=== PATIENT | female | born 1995 | race Caucasian/White ===

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

== ENCOUNTER 2018-03-08 19:26 | Emergency (ER) | payer MEDICAID ==
[~2018-03-08] VITALS: Ht 167.6 cm; Wt 81.8 kg
[2018-03-08 19:33] VITALS: Ht 167.6 cm; Wt 81.8 kg
[2018-03-08] MEDS ORDERED: ZOLOFT25 MG (19:35)
[2018-03-08 20:00] LABS: BASOPHILS 0.3 % (0-2); EOSINOPHILS 1.2 % (0-7); HEMATOCRIT 43.2 % (36.0-48.0); HEMOGLOBIN 14.8 g/dL (12-16); IMMATURE GRANULOCYTES 0.2 % (0-5); LYMPHOCYTES 22.6 % (15-50); MCH 31.9 pg (26.0-34.0); MCHC 34.3 g/dL (31.0-37.0); MCV 93.1 fL (80.0-100.0); MEAN PLATELET VOLUME 9.7 fL (7.4-10.4); MONOCYTES 7.5 % (2-11); NEUTROPHILS 68.2 % (40-80); PLATELET COUNT 242 10x3/uL (130-400); RBC 4.64 10x6/uL (4.00-5.40); RDW 12.1 % (11.5-14.5); WBC 6.4 10x3/uL (4.8-10.8)
[2018-03-08 20:03] LABS: APPEARANCE HAZY (CLEAR); BILIRUBIN NEGATIVE (NEGATIVE); COLOR YELLOW (YELLOW); GLUCOSE NEGATIVE (NEGATIVE); KETONE LARGE mg/dL (NEGATIVE); NITRITE NEGATIVE (NEGATIVE); PROTEIN TRACE mg/dL (NEGATIVE); UROBILINOGEN NORMAL (NORMAL)
[2018-03-08 20:16] LABS: BACTERIA MODERATE /hpf (NONE SEEN); EPITHELIAL CELLS 0-5 /hpf (0-5); RED CELLS - URINE 0-5 /hpf (0-5)
[2018-03-08 20:19] LABS: UDS - AMPHET NEGATIVE QUAL (NEGATIVE); UDS - BARB NEGATIVE QUAL (NEGATIVE); UDS - BENZO NEGATIVE QUAL (NEGATIVE); UDS - COCAINE NEGATIVE QUAL (NEGATIVE); UDS - OPIATE NEGATIVE QUAL (NEGATIVE); UDS - PCP NEGATIVE QUAL (NEGATIVE); UDS - THC POSITIVE QUAL (NEGATIVE)
[2018-03-08 20:24] LABS: CALC OSMOLALITY 268 mosm/kg (275-300); CALCIUM 8.6 mg/dL (8.5-10.1); CARBON DIOXIDE 20.2 mmol/L (21.0-32.0); CHLORIDE - SERUM 98 mmol/L (98-107); CREATININE - SERUM 0.9 mg/dL (0.6-1.3); POTASSIUM - SERUM 3.8 mmol/L (3.5-5.1); SODIUM 135 mmol/L (136-145); THYROID STIMULATING HORMONE 0.96 uIU/mL (0.36-3.74); UREA NITROGEN 14 mg/dL (7-18); eGFR NON AFRICAN AMERICAN 85 mL/min (90-120)
[2018-03-08 20:31] LABS: GLUCOSE 59 mg/dL (74-106)
[2018-03-08 21:36] LABS: HCG SERUM NEGATIVE (NEGATIVE)
[2018-03-09 13:36] VITALS: BP 120/74
== END 2018-03-09 14:35 ==
LOC: D.ER 19:26
PROVIDERS: Family Medicine
DX: F32.9 Major depressive disorder, single episode, unspecified (principal); T14.91XA Suicide attempt, initial encounter; T43.012A Poisoning by tricyclic antidepressants, intentional self-harm, initial encounter; Y92.019 Unspecified place in single-family (private) house as the place of occurrence of the external cause; N39.0 Urinary tract infection, site not specified

== ENCOUNTER 2020-01-22 04:14 | Inpatient (IN) | payer MEDICAID ==
[2020-01-22] VITALS (64 sets, daily range): BP systolic 70–137; BP diastolic 30–115; BMI 32.2
[~2020-01-22] VITALS: Ht 167.6 cm; Wt 95.6 kg
--- NOTE | ~2020-01-22 | HEMODYNAMI ---
PATIENT:SANA FINNEY MEDICAL RECORD: [id number] : [birth year] LOCATION:[facility] D.2307 ADMISSION DATE: 01/22/20 Generatedon:01/22/20207:20 Patient name: SANA FINNEY Patient #: [id number] SSN: DO B: 1995 Date of study: 01/22/2020 Page: Of Hemodynamic Procedure Report Patient Data Patient Demographics Procedure consent was obtained First Name: SANA Gender: Female Last Name: NATA : 1995 Patient #: [id number] Age: 24 year(s) Race: Additional ID: [id number] Contact details [address]: [address] [place] [address] State: [place] City: [place] Zip code: [address] Past Medical History Allergies: No known allergies Admission Admission Data Admission Date: 01/22/2020 Admission Time: 6:33 Arrival Date: 01/22/2020 Arrival Time: 0:00 Admit Source: Other [facility] #: [id number] Room #: D.2307 Height (in.): 66 BSA: 2 (m2) Height (cm.): 167.64 BMI: 32.35 (kg/m2) Weight (lbs.): 200.4 Weight (kg.): 90.9 Lab Results Lab Result Date: 01/22/2020 Lab Result Time: 0:00 Biochemistry Name Units Result Min Max BUN mg/dl 12 --(-*--)-- 7 18 CK-MB ng/ml 0.9 --(*---)-- 0 3.6 Creatinine mg/dl 1 --(--*-)-- 0.6 1.3 eGFR ml/min 73.34269 *-(----)-- 90 120 NONAFRICAN Troponin l ng/ml 0.017 --(-*--)-- 0 0.06 CBC Name Units Result Min Max Hematocrit % 42.8 --(*---)-- 42 54 Hemoglobin g/dl 13.8 --(*---)-- 13.5 17.5 Procedure Procedure Types Cath Procedure Diagnostic Procedure Temporary Pacemaker Procedure Description Procedure Date Procedure Date: 01/22/2020 Procedure Start Time: 6:59 Procedure End Time: 7:18 Procedure Staff Name Function Mariposa Ortega MD Performing Physician Shima Herron RT Monitor Chinmay Madrigal RT Scrub Barber Alvarez RN Nurse Procedure Data Cath Procedure Fluoroscopy Diagnostic fluoroscopy Total fluoroscopy Time: 1.1 time: 1.1 min min Diagnostic fluoroscopy Total fluoroscopy dose: 91 dose: 91 mGy mGy Contrast Material Contrast Material Type Amount (ml) Isovue 370 0 Entry Location Entry Primary Successful Side Size Upsize Upsize Entry Closure Succes sful Closure Location (Fr) 1 (Fr) 2 (Fr) Remarks Device Remarks Femoral Right 6 Fr Sheath vein Short sutured in place Estimated blood loss: 0 ml Procedure Complications No complications Procedure Medications Medication Administration Route Dosage Oxygen Epinephrine I.V. drip 2 mcg/min 0.9% NaCl I.V. 200 ml/hr Lidocaine 2% added to field 20 Heparin Flush Bag added to field 1 bags (1000units/500ml NS) Hemodynamics Rest BSA: 2 (m2) HGB: 13.8 (g/dl) O2 Consumption: Estimated: 234.81 (ml/min) O2 Consu mption indexed: Estimated:117.4 (ml/min/m) Heart Rate: 85 (bpm) Snapshots Pre Cath Intra NCS Post Cath Vital Signs Time Heart Resp SPO2 etCO2 NIBP (mmHg) Rhythm Pain Sedation Rate (ipm) (%) (mmHg) Status Level (bpm) 6:47:25 86 27 100 0 127/87(102) NSR 0 (11) 3(A) , No pain 6:51:39 85 21 100 0 109/74(87) NSR 0 (11) 3(A) , No pain 6:55:40 92 18 100 0 126/89(111) NSR 0 (11) 3(A) , No pain 6:59:54 87 17 100 0 131/91(109) NSR 0 (11) 3(A) , No pain 7:04:08 92 20 100 0 142/99(128) NSR 0 (11) 3(A) , No pain 7:09:07 91 17 100 0 Measuring NSR 0 (11) 3(A) , No pain 7:09:11 91 17 100 0 135/93(114) NSR 0 (11) 3(A) , No pain 7:13:23 83 8 100 0 116/83(95) NSR 0 (11) 3(A) , No pain 7:17:37 91 20 100 0 132/89(111) NSR 0 (11) 3(A) , No pain Medications Time Medication Route Dose Verified Delivered Reason Notes E ffectiveness by by 6:46:39 Epinephrine I.V. 2 mcg/min Mariposa Blandon Per cont drip Jordan Alvarez RN physician drip from er 6:46:39 Oxygen pt is intubated from er 6:48:45 0.9% NaCl I.V. 200 ml/hr Mariposa Blandon Per Jordan Alvarez RN physician 6:55:49 Lidocaine 2% added 20ml vial Mariposa Buffie for local to Jordan Alvarez RN anesthetic field 6:55:58 Heparin Flush added 1 bags Norjoe Buffie used for Bag to Jordan Alvarez RN procedure (1000units/500ml field NS) Procedure Log Time Note 6:20:37 Pt transported from er intubated with ogt to low inter. suction. Pt friends are in waiting area. 6:20:58 Barber Alvarez RN sent for patient. Start room use. 6:44:56 Informed consent obtained and on chart 6:45:12 Diagnostic Cath Status : Urgent 6:45:32 Arrival Date: 01/22/2020 12:00:00 AM 6:45:33 Admit Source: Other 6:45:36 Patient Height : 66 inches 6:45:42 Patient Weight : 200.4 lbs 6:46:22 Vital chart was started 6:46:31 Lab Result : Hemoglobin 13.8 g/dl 6:46:31 Lab Result : eGFR NONAFRICAN 73.75510 ml/min 6:46:31 Lab Result : Creatinine 1 mg/dl 6:46:31 Lab Result : BUN 12 mg/dl 6:46:31 Lab Result : CK-MB 0.9 ng/ml 6:46:31 Lab Result : Troponin l 0.017 ng/ml 6:46:31 Lab Result : Hematocrit 42.8 % 6:46:39 Epinephrine 2 mcg/min I.V. drip was administered by Buffie Alvarez RN; Per physician; cont drip from er Verbal order read back and verified. 6:46:39 Oxygen pt is intubated from er was administered by ; ; Verbal order read back and verified. 6:46:54 Procedure Status Urgent Heart Cath (IP). 6:47:11 Time tracking: Regular hours (M-F 7:00 - 5:00) 6:47:15 Plan of Care:Hemodynamics will remain stable., Cardiac rhythm will remain stable., Comfort level will be maintained., Respiratory function will remain adequate., Patient/ family verbilizes understanding of procedure., Procedure tolerated without complication., Recovers from procedure without complications.. 6:48:45 0.9% NaCl 200 ml/hr I.V. was administered by Barber Alvarez RN; Per physician; Verbal order read back and verified. 6:49:13 Patient received from ED to CCL 2 On ventilator. Tansferred to table in Supine position. 6:49:15 Warm blankets applied, and adrián hugger turned on for patient comfort. 6:49:15 Correct patient and procedure confirmed by team. 6:49:16 ECG and BP/O2 sat monitors applied to patient. 6:49:18 Baseline sample Acquired. 6:49:21 Rhythm: sinus rhythm 6:49:22 Full Disclosure recording started 6:49:35 Family unavailable. 6:49:48 Patient NPO since Dinner. 6:50:05 Patient allergic to No known allergies 6:50:10 Is the patient allergic to Iodine/contrast media? No. 6:50:25 Is patient on blood thinner?Unknown 6:50:27 Patient diabetic? Unknown. 6:51:10 Previous problem with sedation/anesthesia? Unknown ? 6:51:12 Snore? Unknown 6:51:13 Sleep apnea? Unknown 6:51:14 Deviated septum? Unknown 6:51:15 Opens mouth fully? Unknown 6:51:17 Sticks out tongue? Unknown 6:51:19 Airway obstruction? Unknown ? 6:51:21 Dentures? Unknown ? 6:52:13 IV patent on arrival in right hand with 0.9% NaCl at [facility]. 6:52:17 Right groin area was prepped with chlora-prep and draped in sterile fashion 6:52:18 Alarms reviewed by R. N. 6:52:20 Sharps counted by scrub and verified by R.N. 6:52:33 Physician arrived 6:52:33 --------ALL STOP TIME OUT------ 6:52:34 Final Timeout: patient, procedure, and site verified with staff and physician. All members of the team are in agreement. 6:52:36 Right groin site verified by team. 6:52:39 Fire Safety Assessment: A--An alcohol-based skin anteseptic being used preoperatively., C--Open oxygen or nitrous oxide is being used., D--An ESU, laser, or fiber-optic light is being used. 6:52:42 Physical assessment completed. ASA score P 5 - A moribund patient who is not expected to survive without the operation as per Mariposa Ortega MD. 6:52:50 Sedation plan: None Medication:Lidocaine 6:54:25 Use device set Temporary Pacemaker 6:54:27 SHEATH 6FR Oakridge ([id number]) opened to sterile field. 6:54:28 2-0 Silk 685H opened to sterile field. 6:54:28 5Fr J Tip Temporary Pacing Catheter ([id number]) opened to sterile field. 6:55:49 Lidocaine 2% 20ml vial added to field was administered by Barber Alvarez RN; for local anesthetic; Verbal order read back and verified. 6:55:58 Heparin Flush Bag (1000units/500ml NS) 1 bags added to field was administered by Barber Alvarez RN; used for procedure; Verbal order read back and verified. 6:58:56 Procedure started. 6:59:01 Local anesthetic to right femoral vein with Lidocaine 2% by Mariposa Ortega MD.INITIAL ACCESS ONLY 6:59:06 Access obtained with 4Fr micropunture. 6:59:15 A 6 Fr Short sheath was inserted into the Right Femoral vein 7:00:34 H&P Date Dictated: 01/22/2020 New H&P dictated by physician.. 7:02:58 Use device set Acist 7:02:59 ACIST Manifold (21310) opened to sterile field. 7:03:00 ACIST Hand Control (47462) opened to sterile field. 7:03:00 ACIST Syringe (27507) opened to sterile field. 7:03:09 Use device set CATH PACK 7:03:14 Bag Decanter () opened to sterile field. 7:03:15 Medline Cath Pack ([id number]) opened to sterile field. 7:03:26 Temporary pacer inserted 7:07:11 Temporary pacer turned on with the following settings: Rate 50, MA 3, Mode: Demand. 7:07:34 Sheath removed intact; hemostasis achieved with Sheath sutured in place to the Right Femoral vein. 7:07:[address]UTURED IN PLACE. 7:10:03 Procedure ended.(Physican Out) 7:10:54 Fluoroscopy time 01.10 minutes. 7:10:57 Flurop Dose total: 91 7:10:57 Fluoroscopy dose: 91 mGy 7:11:03 Dose Area Product 8049 mGy/cm. 7:11:06 Contrast amount:Isovue 370 0ml. 7:11:10 Sharps counted by scrub and verified by R.N. 7:11:11 Insertion/operative site no bleeding no hematoma. 7:11:16 Post-op/insertion site Right Femoral vein dressed using a 4 x 4 and Tegaderm. 7:11:29 Post right femoral vein:stable, soft, clean and dry 7:11:39 Post-procedure physical assessment completed. ASA score P 4 - A patient with severe systemic disease that is a constant threat to life as per Mariposa Ortega MD. 7:11:43 Post procedure rhythm: unchanged. 7:11:46 Estimated blood loss: 0 ml 7:11:49 Patient needs reinforcement of post procedure teaching. 7:12:03 Procedure type changed to Cath procedure, Diagnostic procedure, Temporary Pacemaker 7:12:19 Procedure and supply charges have been captured, reviewed, submitted and are correct. 7:12:21 Procedure Complication : No complications 7:18:33 Vital chart was stopped 7:18:35 Operative report dictated upon procedure completion. 7:18:36 See physician's report for complete and final results. 7:18:40 Report given to ICU. 7:18:42 Patient transfered to ICU with Stretcher. 7:18:44 Procedure ended. 7:18:44 Full Disclosure recording stopped 7:18:50 End room use (Document Last) Device Usage Item Name Manufacture Quantity Catalog Hospital Part Current Minimal L ot# / Number Charge Number Stock Stock Serial# Code SHEATH 6FR Terumo 1 [id number] 196031 [id number] 595429 40 Oakridge ([id number]) 2-0 Silk Ethicon 1 685H 564310 29568 212924 5 685H 5Fr J Tip Finney 1 [id number] 134336 60779 147062 2 Temporary Lifesciences Pacing Catheter ([id number]) ACIST Acist 1 69046 323505 091025 707467 5 Manifold Medical (97192) Systems Inc ACIST Hand Acist 1 84283 538664 760799 445936 5 Control Medical (00475) Systems Inc ACIST Acist 1 09125 940586 982090 887686 20 Syringe Medical (80781) Systems Inc Bag Microtek 1 2001S 675068 53703 007029 5 Decanter Medical Inc. () Medline Medline 1 [id number] 621980 42570 258007 5 Cath Pack ([id number]) Signature Audit Mcconnell Stage Time Signature Unsigned Intra-Procedure 01/22/2020 Barber Alvarez 7:19:44 AM RN; Chinmay Madrigal RT(R); Mariposa Ortega MD Signatures Performing Physician : Signature : Mariposa Ortega MD Date : Time : Monitor : Shima Herron Signature : RT Date : Time : Nurse : Barber Alvarez RN Signature : Date : Time : [facility] [address] [place] [address]
[~2020-01-22 04:14] MED LIST: ZOLOFT25 MG
--- NOTE | 2020-01-22 04:14 | NUR ---
RECIEVED FROM EMS UNRESPONSIVE INTUBATED AND ON VENTILATOR.PUPILS 4 NON REACTIVE. NO VOLUNTARY MOVEMENTS
[2020-01-22 05:05] LABS: BASOPHILS 0.2 % (0-2); EOSINOPHILS 2.1 % (0-7); HEMATOCRIT 42.8 % (36.0-48.0); HEMOGLOBIN 13.8 g/dL (12-16); IMMATURE GRANULOCYTES 1.9 % (0-5); LYMPHOCYTES 58.1 % (15-50); MCH 32.7 pg (26.0-34.0); MCHC 32.2 g/dL (31.0-37.0); MCV 101.4 fL (80.0-100.0); MEAN PLATELET VOLUME 9.4 fL (7.4-10.4); MONOCYTES 3.7 % (2-11); PLATELET COUNT 288 10x3/uL (130-400); RBC 4.22 10x6/uL (4.00-5.40); RDW 12.5 % (11.5-14.5); WBC 12.8 10x3/uL (4.8-10.8)
[2020-01-22 05:15] LABS: CALC OSMOLALITY 283 mosm/kg (275-300); CALCIUM 8.1 mg/dL (8.5-10.1); CARBON DIOXIDE 17.1 mmol/L (21.0-32.0); CHLORIDE - SERUM 108 mmol/L (98-107); SODIUM 141 mmol/L (136-145); UREA NITROGEN 12 mg/dL (7-18); eGFR NON AFRICAN AMERICAN 73 mL/min (90-120)
[2020-01-22 05:17] LABS: GLUCOSE 158 mg/dL (74-106); HCG SERUM NEGATIVE (NEGATIVE)
[2020-01-22 05:31] LABS: ALKALINE PHOSPHATASE 49 U/L (30-120); ALT (SGPT) 29 U/L (10-68); BILIRUBIN - TOTAL 0.25 mg/dL (0.2-1.3); CKMB 0.9 U/L (0.0-3.6); CREATINE KINASE 75 UL (21-215); PROTEIN - SERUM 6.1 g/dL (6.4-8.2); TROPONIN-I < 0.017 ng/mL (0.000-0.060)
[2020-01-22 05:32] LABS: ACETAMINOPHEN 30.1 ug/mL (10.0-30.0); ALBUMIN 3.2 g/dL (3.4-5.0)
[2020-01-22 05:33] LABS: MAGNESIUM - SERUM 1.7 mg/dL (1.8-2.4)
--- NOTE | 2020-01-22 06:00 | NUR ---
SUBCLAVIAN LINE PLACED PER DR LEVINE
[2020-01-22 06:25] LABS: UDS - AMPHET NEGATIVE QUAL (NEGATIVE); UDS - BARB NEGATIVE QUAL (NEGATIVE); UDS - BENZO NEGATIVE QUAL (NEGATIVE); UDS - COCAINE NEGATIVE QUAL (NEGATIVE); UDS - OPIATE NEGATIVE QUAL (NEGATIVE); UDS - PCP NEGATIVE QUAL (NEGATIVE); UDS - THC POSITIVE QUAL (NEGATIVE)
[2020-01-22 06:26] LABS: BILIRUBIN NEGATIVE (NEGATIVE); GLUCOSE NEGATIVE (NEGATIVE); KETONE NEGATIVE (NEGATIVE); NITRITE NEGATIVE (NEGATIVE); SPECIFIC GRAVITY 1.005 (1.005-1.020); UROBILINOGEN NORMAL (NORMAL)
--- NOTE | 2020-01-22 06:40 | NUR ---
TAKEN TO WATCH REPAIRER FOR TEMPORARY PACEMAKER
[2020-01-22] MEDS ORDERED: PROPRANOLOL HCL20 MG PO (10:37)
--- NOTE | 2020-01-22 18:02 | NUR ---
PER CHELSIE SILVA TO START HUONG.
--- NOTE | 2020-01-22 19:00 | NUR ---
0815-RECIEVED FROM TEACHER DANCING-PORT VENT-PLACED TO VENTILATOR AND SETTINGS AT 100% /550/5 A/C--R GROIN TEMP PACER IN PLACE VVI50/2.5-R IJ INFUSING N/S AT 97-CHNWBCEWYUP-DYU AT 2MG-HEART RATE TO MONITOR 88-SR 0830-DR JAIN AT BEDSIDE WITH POISON CONTROL PROTOCOL FOR BETABLOCKER INGESTION-PHARMACY NOTIFIED OF ORDERS AND NEED FOR STAT 0845-D10W STARTED AT 30ML/H-INSULIN GTT STARTED AT 5UNITS PER-NOTED PROTOCOL HAND WRITTEN FROM ER BOLUS 1UNIT/TZ=044CMWE BOLUS-CALLED PHARMACY FOR CONFIRMATION OF THIS ORDER- 09-RETURN CALL FROM MARY IN PHARMACY STATED GOAL IS 1UNIT/KG/HOUR AND TITRATE WITH D10W TO ACHIVE-SEE HAND WRITTEN GLUCOSE CHART-DEXTROSE IN G - 1030-DR LORENZO AND CRISTOBAL AT BEDSIDE-NOTED ACETYMINOPHEN WTPFU-81-IGFVXEO WITH PHARMACY IF ER ADDRESSED WITH CHARCOAL AND MUCOMYST-NONE REMOVED -OGT TUBE HAS BLOOD IN TUBING ONLY AND CLAMPED-ODOUR OF SULFUR NOT PRESENT ON PT-ORDER SENT TO PHARMACY FOR [id number] CALLED UNIT-STATING DOSAGE AMOUNT WRONG AND TO CORRECT -NOTIFIED DR JAIN-RECHECKED AND NOTED CORRECT ORDER DOSAGE SUBMITTED-NOTIFIED PHARMACY AND STRESSED OVERDOSE TYLENOL -TO SEND AFTER VERIFICATION WITH POISON CONTROL-QUESTIONED LENGTH OF TIME AND AMOUNT OF DEXTROSE AND INSULIN REQUIRED AND TO RUN CONCURRENTLY NOT D50W AMP PUSHES -DR JAIN NOTIFIED BY PHARMACIST FOR CLARIFICATION 1330-NOTED NOT ABLE TO MEET PROTOCOL-INSULIN GTT AT 20UNITS FSBS 77-DEXTROSE AT 100ML/H-RECOMMENDATION TO TREAT DEXTROSE G/H-100G/H MAX-NOTIFIED PHARMACY NOTED D10W 1000ML =100G-INCREASED DEXTROSE 30G AND CONTINUED WITH TITRATION 1500-COMPLLETE AM CARE DONE-R GROIN PACER WIRE SECURED-PT AWAKENED AND COMBATIVE-SECURED WRIST RETRAINTS TO PREVENT EXTUBATION-VERSED 2MG IVP GIVEN 1530-CONTINUES COMBATIVE-STRONG RISK TO DISLODGE PACER WIRE-VERSED 2MG IVP- 1615-MOTHER AT BEDSIDE-STIMUALTED PT TO WAKING STATE-SEVERE COMBATIVE-VERSED 2MG IVP GIVEN-DR JAIN NOTIFIED.NOTED HR DECREASED TO 40 WITH WIDENED QRRS-PACED BEATS X 1-2 MIN-RETURNED TO SR 1630-CONTINUES SEVERE RRISK FOR DISLODGEMENT OF PACER WIRE-VERSED 2MG IVP 1700-DR LORENZO AT BEDSIDE-FOUND PACER WIRE DISCONNECTED WIRE TANGLED AROUND FOOT-SR ON MONITOR-RESECURED WIRE-VERSED 2MG IVP GIVEN-DR JAIN RETURNED CALL STATUS REPORT GIVEN-DIPRIVAN GTT STARTED AND TITRATED TO 20/KG /MIN FOR TASNEEM OF 2 1730-MOTHER RETURNED -DR JAIN AT BEDSIDE-TASNEEM 1-SR ON MONITOR 1900-NOTED PACED 100% ON MONITOR-STRONG PULSE-10MIN INTERMITTENTLY-SEE STRIP GIVEN
--- NOTE | 2020-01-22 19:30 | NUR ---
REPORT RECEIVED. INITIAL ASSESSMENT COMPLETE SEE FLOWSHEETS IV DRIPS PER IV FLOWSHEET. KNEE IMMOBOILZER APPLIED TO RIGHT LEG TO KEEP LEG STRAIGHT TO PROTECT RIGHT GROIN TEMP PACER.
[2020-01-22 19:56] LABS: CALC OSMOLALITY 274 mosm/kg (275-300); CALCIUM 7.7 mg/dL (8.5-10.1); CHLORIDE - SERUM 105 mmol/L (98-107); GLUCOSE 142 mg/dL (74-106); MAGNESIUM - SERUM 1.4 mg/dL (1.8-2.4); SODIUM 137 mmol/L (136-145); UREA NITROGEN 10 mg/dL (7-18)
[2020-01-22 20:07] LABS: CARBON DIOXIDE 27.3 mmol/L (21.0-32.0); CREATININE - SERUM 0.7 mg/dL (0.6-1.3); eGFR NON AFRICAN AMERICAN > 90 mL/min (90-120)
[2020-01-22 20:08] LABS: POTASSIUM - SERUM 2.8 mmol/L (3.5-5.1)
--- NOTE | 2020-01-22 21:00 | NUR ---
EPI GTT OFF
--- NOTE | 2020-01-22 22:45 | NUR ---
PTS SISTER AT DOOR UPDATE GIVEN
--- NOTE | 2020-01-22 23:07 | NUR ---
ATIVAN GIVEN FOR AGITATION SEE EMAR
[2020-01-23] VITALS (57 sets, daily range): BP systolic 93–127; BP diastolic 58–597
--- NOTE | 2020-01-23 00:50 | NUR ---
RECEIVED CALL FROM POISON CONTROL, UPDATED REGARDING PT STATUS, NOTHING FURTHER AT THIS TIME.
--- NOTE | 2020-01-23 03:00 | NUR ---
REASSESSMENT COMPLETE SEE FLOWSHEET
--- NOTE | 2020-01-23 05:15 | NUR ---
PTS MOTHER AT BEDSIDE UPDATE GIVEN
[2020-01-23 06:27] LABS: BASOPHILS 0.1 % (0-2); EOSINOPHILS 0.1 % (0-7); HEMATOCRIT 36.6 % (36.0-48.0); HEMOGLOBIN 12.4 g/dL (12-16); IMMATURE GRANULOCYTES 0.3 % (0-5); LYMPHOCYTES 14.8 % (15-50); MCH 32.5 pg (26.0-34.0); MCHC 33.9 g/dL (31.0-37.0); MEAN PLATELET VOLUME 9.9 fL (7.4-10.4); MONOCYTES 8.8 % (2-11); NEUTROPHILS 75.9 % (40-80); RBC 3.81 10x6/uL (4.00-5.40); RDW 12.2 % (11.5-14.5); WBC 15.8 10x3/uL (4.8-10.8)
[2020-01-23 06:31] LABS: MCV 96.1 fL (80.0-100.0); PLATELET COUNT 175 10x3/uL (130-400)
[2020-01-23 06:40] LABS: INR 1.33 (0.85-1.17); PROTIME 16.3 SECONDS (11.6-15.0)
[2020-01-23 06:51] LABS: ACETAMINOPHEN 2.5 ug/mL (10.0-30.0); ALBUMIN 2.4 g/dL (3.4-5.0); ALKALINE PHOSPHATASE 42 U/L (30-120); BILIRUBIN - TOTAL 0.59 mg/dL (0.2-1.3); CALCIUM 7.4 mg/dL (8.5-10.1); CARBON DIOXIDE 22.8 mmol/L (21.0-32.0); CHLORIDE - SERUM 107 mmol/L (98-107); CREATININE - SERUM 0.7 mg/dL (0.6-1.3); GLUCOSE 119 mg/dL (74-106); MAGNESIUM - SERUM 1.2 mg/dL (1.8-2.4); PROTEIN - SERUM 5.2 g/dL (6.4-8.2); SODIUM 140 mmol/L (136-145); eGFR NON AFRICAN AMERICAN > 90 mL/min (90-120)
[2020-01-23 06:52] LABS: ALT (SGPT) 39 U/L (10-68); CALC OSMOLALITY 275 mosm/kg (275-300); UREA NITROGEN 2 mg/dL (7-18)
[2020-01-23 06:53] LABS: POTASSIUM - SERUM 2.4 mmol/L (3.5-5.1)
[2020-01-23 13:08] LABS: CALC OSMOLALITY 272 mosm/kg (275-300); CALCIUM 7.3 mg/dL (8.5-10.1); CARBON DIOXIDE 25.5 mmol/L (21.0-32.0); CHLORIDE - SERUM 107 mmol/L (98-107); CREATININE - SERUM 0.7 mg/dL (0.6-1.3); GLUCOSE 72 mg/dL (74-106); SODIUM 139 mmol/L (136-145); UREA NITROGEN 1 mg/dL (7-18); eGFR NON AFRICAN AMERICAN > 90 mL/min (90-120)
[2020-01-23 13:11] LABS: POTASSIUM - SERUM 2.6 mmol/L (3.5-5.1)
[2020-01-23 18:36] LABS: CALCIUM 7.1 mg/dL (8.5-10.1); CARBON DIOXIDE 23.3 mmol/L (21.0-32.0); CHLORIDE - SERUM 108 mmol/L (98-107); CREATININE - SERUM 0.8 mg/dL (0.6-1.3); MAGNESIUM - SERUM 1.7 mg/dL (1.8-2.4); SODIUM 138 mmol/L (136-145); UREA NITROGEN 1 mg/dL (7-18); eGFR NON AFRICAN AMERICAN > 90 mL/min (90-120)
[2020-01-23 18:37] LABS: CALC OSMOLALITY 274 mosm/kg (275-300); GLUCOSE 159 mg/dL (74-106)
[2020-01-23 18:39] LABS: POTASSIUM - SERUM 2.7 mmol/L (3.5-5.1)
--- NOTE | 2020-01-23 20:02 | NUR ---
0700-RECIEVED PER FLOW SHEET-PHARMACY NOTIFIED FOR CONTINUED NEED OF LARGE SUPPLY OF INSULIN AND DEXTROSE-100UNITS/H INSULIN-DEXTROSE AT 600G/H- 0830-POISON CONTROL CALLED UNIT FOR EUIHRX-FNOLI-QGA AND KCL RIDERS ORDERED 914-DR HESTER AT BEDSIDE-GIVEN MOTHERS TELEPHONE-WITH REQUEST TO CALL- 1030-DR JAIN AT BEDSIDE DECREASED DEXTROSE TO 400G/H-INSULIN DECREASED TO 70UNIS /H 1230-FAMILY AT BEDSIDE-STATED SPOKE WITH DR HESTER 1400-SEE INSULIN FLOW SHEET 1730-COMPLETE AM CARE DONE-
--- NOTE | 2020-01-23 21:06 | NUR ---
PT MOTHER AT BEDSIDE, STATES THAT SHE FOUND A NOTE THAT THE PT HAD LEFT FOR HER, REQUESTED THAT SHE BRING A COPY IF POSSIBLE. UPDATE PROVIDED, ALL QUESTIONS ANSWERED.
[2020-01-24] VITALS (24 sets, daily range): BP systolic 101–126; BP diastolic 52–89
--- NOTE | 2020-01-24 00:23 | NUR ---
PT AGITATED, THRASHING IN BED, DOES NOT RESPOND TO VERBAL COMMANDS. PRN VERSED 2MG ADMINISTERED VIA SIVP PER MD ORDER.
--- NOTE | 2020-01-24 01:26 | NUR ---
K+ 2.8 ON LAB DRAW, FIRST OF THREE 20 MEQ KCL RIDERS INITIATED PER ELECTROLYTE PROTOCOL.
--- NOTE | 2020-01-24 04:12 | NUR ---
POISON CONTROL UPDATED PER REQUEST REGARDING PT STATUS, NO FURTHER RECOMMENDATIONS AT THIS TIME.
[2020-01-24 06:18] LABS: BASOPHILS 0.2 % (0-2); HEMATOCRIT 37.9 % (36.0-48.0); HEMOGLOBIN 12.6 g/dL (12-16); IMMATURE GRANULOCYTES 0.3 % (0-5); LYMPHOCYTES 19.6 % (15-50); MCH 32.1 pg (26.0-34.0); MCHC 33.2 g/dL (31.0-37.0); MCV 96.7 fL (80.0-100.0); MEAN PLATELET VOLUME 9.9 fL (7.4-10.4); MONOCYTES 10.9 % (2-11); PLATELET COUNT 170 10x3/uL (130-400); RBC 3.92 10x6/uL (4.00-5.40); RDW 12.5 % (11.5-14.5); WBC 12.7 10x3/uL (4.8-10.8)
[2020-01-24 06:26] LABS: ALBUMIN 2.2 g/dL (3.4-5.0); ALKALINE PHOSPHATASE 38 U/L (30-120); ALT (SGPT) 35 U/L (10-68); BILIRUBIN - TOTAL 0.57 mg/dL (0.2-1.3); CALC OSMOLALITY 272 mosm/kg (275-300); CALCIUM 7.2 mg/dL (8.5-10.1); CARBON DIOXIDE 24.7 mmol/L (21.0-32.0); CHLORIDE - SERUM 108 mmol/L (98-107); CREATININE - SERUM 0.7 mg/dL (0.6-1.3); GLUCOSE 122 mg/dL (74-106); SODIUM 138 mmol/L (136-145); UREA NITROGEN 1 mg/dL (7-18); eGFR NON AFRICAN AMERICAN > 90 mL/min (90-120)
[2020-01-24 06:27] LABS: MAGNESIUM - SERUM 2.2 mg/dL (1.8-2.4); POTASSIUM - SERUM 3.4 mmol/L (3.5-5.1)
--- NOTE | 2020-01-24 07:00 | NUR ---
REC'D R[PORT AND RESUMED CARE, ETT TO VENTILATION AND SECURED, VSS, VENT SETTINGS PER FLOWSHEET, PROPOFAL INFUSING AT 60 MCG, OGT TO LIWS WITH BLACK DRAINAGE TO CANISTER, IRRIGATED WITH 60 CC H2O, LEFT SC WITH CDI DRESSING, RIGHT FA PIV IN PLACE, HATFIELD TO GRAIVTY WITH CLEAR YELLOW DRAINAGE TO BAG, SCD,S AND SOFT WRIST RESTRAINTS B/L, ASSESSMENT COMPLETED PER FLOWSHEET, INCONTINENT OF LARGE DIARRHEA STOOL TO MONIQUE PAD, SKIN CARE AND LINEN CHANGE COMPLETED
--- NOTE | 2020-01-24 08:06 | NUR ---
VENT ALARMING, COUGHING AND MOVING LEGS TO OUT SIDE OF BED, VERSED 2M IVP GIVN PER PRN ORDER
--- NOTE | 2020-01-24 12:57 | NUR ---
Nutrition Follow-up: Remains intubated and sedated at time. Diet: NPO, OG to LIS Meds noted: diprivan, NS/KCl@50, insulin drip, levophed Labs noted: K 3.4(L), POC Glu 121(H) If unable to extubate and advance diet within next 24hrs recommend EN. TF goal would be Pulmocare @ 45mL/hr. RD following.
--- NOTE | 2020-01-24 14:20 | NUR ---
LATE ENTRY: PC FROM DR LOYD, STATED HE WAS ABLE TO CALL MOTHER AND GIVE STATUS UPDATE, MOTHER HAS NO OTHER NEEDS AT THIS TIME
--- NOTE | 2020-01-24 20:30 | NUR ---
REC'D PT ON VENT, SETTINGS OF AC, RATE OF 22, PEEP 5, FiO2 30%, PEEP 5, O2 SAT 100%. SEDATED BY PROPOFOL AT 75MCG/KG/HR, TASNEEM OF 5. ETT AT MIDLINE. LUNGS WITH CRACKLES/RALES ALLY. OGT TO LIWS WITH DK GREEN SECRETIONS. RIGHT SUBCLAVIAN PATENT WITH D20 @ 150 ML/HR TO ONE PORT, NS W/40 MEQ @ 50 ML/HR TO 2ND PORT. R WRIST PIV PATENT WITH DIPRIVAN @ 75 MCG/KG/HR (45 ML/HR). HATFIELD IN SITU WITH MEI URINE DRAINING TO GRAVITY BAG. SCDs IN PLACE FUNCTIONING. SR PER MONITOR. WILL CONT TO MONITOR.
--- NOTE | 2020-01-24 23:00 | NUR ---
FSBS REMAIN IN 80S, INSULIN DRIP REMAINS OFF. REPOSITIONED FOR PULMONARY HYGIENE AND SKIN INTEGRITY. SISTER HAD BEEN IN VISITATION AT 2100 AND BROUGHT SUICIDE NOTE WITH HER TO MAKE A COPY. TOLD HER WOULD BE HAPPY TO, PLACED ON FRONT OF CHART FOR PHYSICIAN. GIVEN CHG BATH AND REPOSITIONED. MONITORING
[2020-01-25] VITALS (24 sets, daily range): BP systolic 94–128; BP diastolic 42–80
--- NOTE | 2020-01-25 01:30 | NUR ---
CONT UNCHANGED, O2 SAT 100%, REPOSITIONED
--- NOTE | 2020-01-25 04:00 | NUR ---
HAD GIVEN VERSED 2 MG IV @ 2034 AND LORAZEPAM 2 MG IV @ 2304 FOR BUCKING VENT. HAS RESTED MORE SINCE THEN. O2 SATS CONT 100%. CONT TO MONITOR
[2020-01-25 05:40] LABS: BASOPHILS 0.2 % (0-2); EOSINOPHILS 3.3 % (0-7); HEMATOCRIT 36.3 % (36.0-48.0); HEMOGLOBIN 11.8 g/dL (12-16); IMMATURE GRANULOCYTES 0.2 % (0-5); LYMPHOCYTES 25.5 % (15-50); MCH 31.7 pg (26.0-34.0); MCHC 32.5 g/dL (31.0-37.0); MCV 97.6 fL (80.0-100.0); MEAN PLATELET VOLUME 10.7 fL (7.4-10.4); NEUTROPHILS 61.8 % (40-80); PLATELET COUNT 175 10x3/uL (130-400); RBC 3.72 10x6/uL (4.00-5.40); RDW 12.6 % (11.5-14.5)
[2020-01-25 05:42] LABS: WBC 8.8 10x3/uL (4.8-10.8)
[2020-01-25 05:50] LABS: ALBUMIN 2.1 g/dL (3.4-5.0); ALKALINE PHOSPHATASE 52 U/L (30-120); ALT (SGPT) 30 U/L (10-68); BILIRUBIN - TOTAL 0.77 mg/dL (0.2-1.3); CALC OSMOLALITY 277 mosm/kg (275-300); CARBON DIOXIDE 26.9 mmol/L (21.0-32.0); CHLORIDE - SERUM 109 mmol/L (98-107); CREATININE - SERUM 0.6 mg/dL (0.6-1.3); GLUCOSE 94 mg/dL (74-106); POTASSIUM - SERUM 3.6 mmol/L (3.5-5.1); PROTEIN - SERUM 5.2 g/dL (6.4-8.2); SODIUM 141 mmol/L (136-145); eGFR NON AFRICAN AMERICAN > 90 mL/min (90-120)
[2020-01-25 05:51] LABS: UREA NITROGEN 3 mg/dL (7-18)
--- NOTE | 2020-01-25 06:15 | NUR ---
FSBS JUST WENT OVER 100 @ 104, STILL NOT REQUIRING INSULIN DRIP. VSS. I&Os DONE. WILL CONT WITH CURRENT PLAN OF CARE
--- NOTE | 2020-01-25 08:20 | NUR ---
REPORT RECEVIED FROM THE OFF GOING RN. SEE ASSESSMENT IN THE PTS FLOW SHEET. PT SEDATED ON THE VENT. PT VSS. NSR NOTED. SEE IV MEDS IN FLOWSHEET AND MAR. CALL LIGHT IN REACH. WILL CONT POC.
--- NOTE | 2020-01-25 09:00 | NUR ---
PT REPOSITINON FOR COMFORT. VSS. CALL LIGHT IN [facility]. WILLC ONT POC.
--- NOTE | 2020-01-25 10:30 | NUR ---
FULL BEDBATH GIVEN. PT INC OF BOWEL. LINENS CHANGED. CALL LIGHT IN REACH. WILLC ONT POC.
--- NOTE | 2020-01-25 11:00 | NUR ---
REASSESSMENT COMPLETED. SEE FLOW SHEET/MAR
--- NOTE | 2020-01-25 12:43 | NUR ---
1115 ASSISTED WITH BED BATH BEDSIDE REPORT RECEIVED TURNED LOW INTERMITTANT SUCTION BACK ON
--- NOTE | 2020-01-25 12:44 | NUR ---
1208 BLOOD SUGAR 116 NO ACTION INDICATED
--- NOTE | 2020-01-25 14:24 | NUR ---
1409 BLOOD SUGAR 97 NO CHANGES INDICATED
--- NOTE | 2020-01-25 15:24 | NUR ---
1450 DECREASED PROPOFOL TO 35MCG/KG/MIN FOR WEANING TRIAL
--- NOTE | 2020-01-25 16:24 | NUR ---
1520 DECREASED PROPOFOL TO 25 MCG/KG/MIN
--- NOTE | 2020-01-25 16:26 | NUR ---
[address] LOYD AND WAS INSTRUCTED TO STOP THE WEANING TRIAL AND RETURN TO ASSIST CONTROL INCREASED PROPOFOL GTT TO 75 MCG/KG/MIN VERSED GIVEN SEE MAR
--- NOTE | 2020-01-25 17:33 | NUR ---
1730 SEDATED AND RESTING QUIETLY WITH EYES CLOSEDPROPOFOL MAXED OUT AT 75 MCG
--- NOTE | 2020-01-25 19:00 | NUR ---
REPORT RECEIVED. PT SEDATED ON VENT. SOFT WRIST RESTRAINTS IN PLACE. RT SUBCLAVIAN CVL INFUSING, SEE IV FLOWSHEET. ASSESSMENT COMPELTED, SEE FLOWSHEET. WILL CONTINUE TO MONITOR.
--- NOTE | 2020-01-25 20:04 | MORECARE ---
CASE MANAGEMENT DISCHARGE SUMMARY PATIENT: SANA PEACE UNIT: [id number] ADM DATE: 01/22/20 AGE: 24 : [birth year] SEX: F ROOM/BED: D.2307 AUTHOR: ANJALI WILD PHYSICIAN: REFERRING PHYSICIAN: BRENT HESTER DO DATE OF SERVICE: 01/25/20 Discharge Plan Patient Name: SA[facility] PEACE [facility] [facility] 1995 Planned Disposition: Anticipated Discharge Date: Discharge Date: Expected LOS: Initial Reviewer: [email or web address] Initial Review Date: 01/22/2020 Generated: 01/25/20 9:04 pm DCPIA - Discharge Planning Initial Assessment Updated by [email or web address]: Gina Anderson on 01/25/20 8:02 pm * Is the patient Alert and Oriented? Yes * How many steps to enter\exit or inside your home? * PCP unknown - Chal Guru - therapist * Pharmacy [facility] * Preadmission Environment Home with Family * ADLs Independent * List name and contact numbers for known caregivers / representatives who currently or will assist patient after discharge: Tatiana Reynoso [facility] [phone] * Verbal permission to speak to the caregivers and representatives has been obtained from the patient. N/A * Community resources currently utilized None * Additional services required to return to the preadmission environment? No * Can the patient safely return to the preadmission environment? Yes * Has this patient been hospitalized within the prior 30 days at any hospital? No Patient Name: SANA PEACE Page [id number] at 2004 All edits/amendments must be made on the electronic document DICTATION DATE: 01/25/202003 RESTAURANT RECRUITER: KODY 01/25/202003 RPT#: [id number] DC DATE: STATUS: ADM IN [facility] [address] [place] [address] END OF REPORT
--- NOTE | 2020-01-25 20:11 | MORECARE ---
CASE MANAGEMENT DISCHARGE SUMMARY PATIENT: SANA PEACE UNIT: [id number] ADM DATE: 01/22/20 AGE: 24 : [birth year] SEX: F ROOM/BED: D.2307 AUTHOR: TORRI,DOC PHYSICIAN: REFERRING PHYSICIAN: BRENT HESTER DO DATE OF SERVICE: 01/25/20 Discharge Plan Patient Name: SANA PEACE Facility: [facility]:[place] : 1995 Planned Disposition: Anticipated Discharge Date: Discharge Date: Expected LOS: Initial Reviewer: [email or web address] Initial Review Date: 01/22/2020 Generated: 01/25/20 9:10 pm Comments DCP- Discharge Planning Updated by [email or web address]: Gina Anderson on 01/25/20 7:[address] Patient Name: SANA PEACE Admission Status: ER Accout number: [id number] Admission Date: 01-22-2020 : 1995 Admission Diagnosis:POISONING BY OTH DRUG/MEDS/BIOL SUBST, SELF-HARM, INIT Attending: BRENT HESTER Current LOS: 3 Anticipated DC Date: Planned Disposition: [place] PR[place] Discharge Planning Comments: CM met with patient's sister Tatiana Reynoso to complete initial dc planning assessment. CM educated patient on the CM role and verbal consent given by patient to complete assessment. Patient lives at home with room-mate. Patient is independent. At discharge patient will most likely need inpatient psych placement since this admission was related to a suicide attempt. CM will continue to follow and will assist as needed with dc plans/needs. Information Assurance Manager: Gina Anderson DCPIA - Discharge Planning Initial Assessment Updated by [email or web address]: Gina Anderson on 01/25/20 8:02 pm * Is the patient Alert and Oriented? Yes * How many steps to enter\exit or inside your home? * PCP unknown - Patience Garvey - therapist * Pharmacy [facility] * Preadmission Environment Home with Family * ADLs Independent * List name and contact numbers for known caregivers / representatives who currently or will assist patient after discharge: Tatiana Reynoso - sister - [phone] * Verbal permission to speak to the caregivers and representatives has been obtained from the patient. N/A * Community resources currently utilized None * Additional services required to return to the preadmission environment? No * Can the patient safely return to the preadmission environment? Yes * Has this patient been hospitalized within the prior 30 days at any hospital? No Last DP export: 01/25/20 7:04 p Patient Name: SANA PEACE Page [id number] at 2010 All edits/amendments must be made on the electronic document DICTATION DATE: 01/25/202009 OCEAN IMPORT REPRESENTATIVE: KODY 01/25/202009 RPT#: [id number] DC DATE: STATUS: ADM IN [facility] [address] [place] [address] END OF REPORT
--- NOTE | 2020-01-25 21:00 | NUR ---
PT SEDATED ON VENT. NO ACUTE DISTRESS NOTED.
[2020-01-26] VITALS (24 sets, daily range): BP systolic 97–127; BP diastolic 43–71
[2020-01-26 06:05] LABS: BASOPHILS 0.3 % (0-2); EOSINOPHILS 5.7 % (0-7); HEMATOCRIT 32.4 % (36.0-48.0); HEMOGLOBIN 10.5 g/dL (12-16); IMMATURE GRANULOCYTES 0.3 % (0-5); LYMPHOCYTES 19.1 % (15-50); MCH 31.9 pg (26.0-34.0); MCHC 32.4 g/dL (31.0-37.0); MCV 98.5 fL (80.0-100.0); MEAN PLATELET VOLUME 9.8 fL (7.4-10.4); MONOCYTES 9.9 % (2-11); NEUTROPHILS 64.7 % (40-80); PLATELET COUNT 168 10x3/uL (130-400); RBC 3.29 10x6/uL (4.00-5.40); RDW 12.3 % (11.5-14.5); WBC 7.2 10x3/uL (4.8-10.8)
[2020-01-26 06:10] LABS: ALBUMIN 1.9 g/dL (3.4-5.0); ALKALINE PHOSPHATASE 52 U/L (30-120); ALT (SGPT) 23 U/L (10-68); BILIRUBIN - TOTAL 0.56 mg/dL (0.2-1.3); CALCIUM 7.5 mg/dL (8.5-10.1); CARBON DIOXIDE 27.2 mmol/L (21.0-32.0); CHLORIDE - SERUM 105 mmol/L (98-107); CREATININE - SERUM 0.5 mg/dL (0.6-1.3); GLUCOSE 122 mg/dL (74-106); POTASSIUM - SERUM 3.2 mmol/L (3.5-5.1); SODIUM 139 mmol/L (136-145); eGFR NON AFRICAN AMERICAN > 90 mL/min (90-120)
[2020-01-26 06:12] LABS: CALC OSMOLALITY 275 mosm/kg (275-300); UREA NITROGEN 4 mg/dL (7-18)
--- NOTE | 2020-01-26 07:00 | NUR ---
REPORT RECEVIED FROM THE OFF GOING RN. SEE ASSESSMENT IN THE PTS FLOW SHEET. PT SEDATED ON THE VENT. NSR ON THE MONITORS. VSS. CALL LIGHT IN REACH. WILL CONT POC.
--- NOTE | 2020-01-26 07:19 | NUR ---
2300 - REASSESSMENT COMPLETED, SEE FLOWSHEET. 0100 - PT SEDATED ON VENT, NO ACUTE DISTRESS NOTED. 0300 - REASSESSMENT COMPLETED, SEE FLOWSHEET. 0500 - PT SEDATED ON VENT, NO ACUTE DISTRESS NOTED. WILL CONTINUE TO MONITOR.
--- NOTE | 2020-01-26 08:16 | NUR ---
DR LOYD IN THE UNIT. TURN SEDATION OFF. TRY TO WEEN.
--- NOTE | 2020-01-26 08:34 | NUR ---
PT OFF SEDATION AND AWAKE. PT COUGHING OVER THE VENT AND TACHYPNIC. PT AWAKE. PT NOT FOLLOWING DIRECTIONS. PT STARTED TO KICK AND ATTEMPTED TO KICK STAFF MULTIPLE TIMES. PER DR LOYD, PLACE PATIENT BACK ON SEDATION AND ON FULL VENT SUPPORT.
--- NOTE | 2020-01-26 11:00 | NUR ---
PT REMAINS SEDATED AND CALM AT THIS TIME. VSS. CALL LIGHT IN REACH. WILLC ONT POC.
--- NOTE | 2020-01-26 13:00 | NUR ---
PT HAD A BM. CHD BATH GIVEN AND FULL LINEN CHANGED. PT TOLERATED WELL. WILLC ONT POC.
--- NOTE | 2020-01-26 13:51 | NUR ---
Nutrition Follow-up: Remains sedated and intubated. On BB toxicity protocol per poison control. Plans to begin vent weaning trial today. Diet: NPO Recommend MONOGRAM MACHINE OPERATOR swallow eval s/p extubation for safe PO diet/advanced diet to regular as medically feasible. If unable to extubate recommend nutrition support. RD following.
--- NOTE | 2020-01-26 15:00 | NUR ---
REASSESSMENT COMPLTED. SEE FLOW SHEET. CALL LIGHT IN REACH. WILL CONT POC.
--- NOTE | 2020-01-26 19:00 | NUR ---
ASSESSMENT COMPLETED. SEE FLOWSHEETS FOR ALL FINDINGS. PT SEDATED ON VENT, AROUSES WITH VOICES, GET RESTLESS WITH TACTILE STIMULATION. NO FALLOWS COMMANDS AT THIS TIME. VSS. CONT SEDATION PER ORDER TO KEEP PT CALM ON VENT. CONT TO MONITOR.
--- NOTE | 2020-01-26 20:45 | NUR ---
FAMILY AT BEDSIDE. UPDATED.
--- NOTE | 2020-01-26 21:00 | NUR ---
SCHEDULED MEDS GIVEN WITHOUT DIFFIC. PT ALINA WELL. CPOC.
--- NOTE | 2020-01-26 21:00 | NUR ---
NO VISITORS AT THIS TIME. PT CONT RESTLESS AND AGITATED IN BED. SEDATION CONT PER ORDER. MOUTH CARE PER VAP PROVIDED. VSS. CPOC.
--- NOTE | 2020-01-26 23:00 | NUR ---
REASSESSMENT COMPLETED. NO ACUTE CHANGED NOTED IN PT'S STATUS. CONT SEDATION TO KEEP PT CALM ON MONITOR. VSS. CPOC.
[2020-01-27] VITALS (24 sets, daily range): BP systolic 97–128; BP diastolic 45–80
--- NOTE | 2020-01-27 01:00 | NUR ---
PT ON VENT RESTLESS IN BED, HANKING THE VENT CONSTANTLY, SUCTION AND MOUTH CARE DONE FOR COPIOUS SECREATIION. CONT SEDATION TO KEEP CALM. CPOC.
--- NOTE | 2020-01-27 03:00 | NUR ---
REASSESSMENT COMPLETED PER FLOWSHEETS. NO ACUTE SINGS OF ACUTE CHANGES NOTED. VSS. CPOC.
--- NOTE | 2020-01-27 04:00 | NUR ---
I&O COMPLETED TO CHART.
[2020-01-27 05:23] LABS: BASOPHILS 0.3 % (0-2); EOSINOPHILS 4.8 % (0-7); HEMATOCRIT 35.7 % (36.0-48.0); HEMOGLOBIN 11.6 g/dL (12-16); IMMATURE GRANULOCYTES 0.2 % (0-5); LYMPHOCYTES 16.5 % (15-50); MCH 32.6 pg (26.0-34.0); MCHC 32.5 g/dL (31.0-37.0); MCV 100.3 fL (80.0-100.0); MEAN PLATELET VOLUME 10.2 fL (7.4-10.4); MONOCYTES 12.2 % (2-11); PLATELET COUNT 195 10x3/uL (130-400); RBC 3.56 10x6/uL (4.00-5.40); RDW 12.4 % (11.5-14.5)
[2020-01-27 05:34] LABS: ALBUMIN 2.3 g/dL (3.4-5.0); ALKALINE PHOSPHATASE 61 U/L (30-120); ALT (SGPT) 23 U/L (10-68); BILIRUBIN - TOTAL 0.41 mg/dL (0.2-1.3); CALC OSMOLALITY 274 mosm/kg (275-300); CARBON DIOXIDE 27.5 mmol/L (21.0-32.0); CHLORIDE - SERUM 106 mmol/L (98-107); CREATININE - SERUM 0.6 mg/dL (0.6-1.3); GLUCOSE 85 mg/dL (74-106); SODIUM 140 mmol/L (136-145); UREA NITROGEN 3 mg/dL (7-18); eGFR NON AFRICAN AMERICAN > 90 mL/min (90-120)
[2020-01-27 05:40] LABS: WBC 9.1 10x3/uL (4.8-10.8)
[2020-01-27 05:42] LABS: POTASSIUM - SERUM 4.3 mmol/L (3.5-5.1)
--- NOTE | 2020-01-27 19:00 | NUR ---
REPORT RECEIVED. PT SEDATED ON VENT, NO ACUTE DISTRESS NOTED. SOFT WRIST RESTRAINTS IN PLACE. ASSESSMENT COMPLETED, SEE FLOWSHEET. RT SUBCLAVIAN CVL INFUSING, SEE IV FLOWSHEET. WILL CONTINUE TO MONITOR.
--- NOTE | 2020-01-27 21:00 | NUR ---
PT SEDATED ON VENT, NO ACUTE DISTRESS NOTED.
--- NOTE | 2020-01-27 23:00 | NUR ---
REASSESSMENT COMPLETED, SEE FLOWSHEET. PT SEDATED ON VENT.
[2020-01-28] VITALS (25 sets, daily range): BP systolic 99–130; BP diastolic 44–72
--- NOTE | 2020-01-28 01:00 | NUR ---
PT SEDATED ON VENT. COPIOUS THICK, YELLOW SECRETIONS FROM NOSE AND MOUTH. SUCTIONED NEEDED.
--- NOTE | 2020-01-28 03:00 | NUR ---
REASSESSMENT COMPLETED, SEE FLOWSHEET.
--- NOTE | 2020-01-28 05:00 | NUR ---
PT SEDATED ON VENT, NO ACUTE DISTRESS NOTED.
--- NOTE | 2020-01-28 07:00 | NUR ---
RECEIVED BEDSIDE REPORT ON PATIENT AND ASSUMED CARE. PATIENT SEDATED ON VENT, SPO2 - 95%, VENT SETTINGS ARE AC 18, TV 500, PEEP 5, FIO2 30%. BBS - CLEAR AND EQUAL DIMINISHED IN BASES. ETT 8.0, 23 CM. CM - ST WITH NO ECTOPY NOTED RATE 108. CVL TO RIGHT SUBCLAVIAN WITH NS WITH 40 MEQ KCL INFUSING AT 50 ML/HR, D20W INFUSING AT 150 ML/HR, PROPOFOL AT 75 MCG/KG/MIN (45 ML/HR) AND FENTANYL AT 50 MCG/HR (1 ML/HR). IV 20 GA TO LEFT WRIST NSL. RESTRAINTS IN PLACE AND SCDS ON. OG TUBE WITH OSMOLITE AT 20 ML/HR, PLACEMENT VERIFIED VIA ASCULTATION, RESIDUAL 150 ML. PATIENT TURNED AND REPOSITIONED IN BED. VSS. HEAD TO TOE ASSESSMENT COMPLETED.
[2020-01-28 07:45] LABS: CALC OSMOLALITY 272 mosm/kg (275-300); CALCIUM 7.8 mg/dL (8.5-10.1); CARBON DIOXIDE 29.1 mmol/L (21.0-32.0); CHLORIDE - SERUM 105 mmol/L (98-107); CREATININE - SERUM 0.6 mg/dL (0.6-1.3); GLUCOSE 106 mg/dL (74-106); POTASSIUM - SERUM 3.7 mmol/L (3.5-5.1); SODIUM 138 mmol/L (136-145); UREA NITROGEN 3 mg/dL (7-18); eGFR NON AFRICAN AMERICAN > 90 mL/min (90-120)
[2020-01-28 07:50] LABS: BASOPHILS 0.2 % (0-2); EOSINOPHILS 6.3 % (0-7); HEMATOCRIT 35.3 % (36.0-48.0); HEMOGLOBIN 11.3 g/dL (12-16); IMMATURE GRANULOCYTES 0.3 % (0-5); LYMPHOCYTES 15.1 % (15-50); MCH 32.5 pg (26.0-34.0); MCV 101.4 fL (80.0-100.0); MEAN PLATELET VOLUME 9.7 fL (7.4-10.4); MONOCYTES 12.4 % (2-11); NEUTROPHILS 65.7 % (40-80); PLATELET COUNT 209 10x3/uL (130-400); RBC 3.48 10x6/uL (4.00-5.40); RDW 12.6 % (11.5-14.5); WBC 9.2 10x3/uL (4.8-10.8)
--- NOTE | 2020-01-28 08:11 | NUR ---
PATIENT DESAT TO 84% WITH GOOD WAVEFORM, INCREASED FIO2 TO 40% AND RT NOTIFIED.
--- NOTE | 2020-01-28 08:45 | NUR ---
PATIENT TURNED AND REPOSITIONED IN BED. FIO2 - 30% WITH SPO2 - 98%. RT AT ROOM OBTAINING ABG. MEDS PER SEP.
--- NOTE | 2020-01-28 09:21 | NUR ---
PATIENTS MOTHER AT ROOM UDPATED AND QUESTIONS ANSWERED.
--- NOTE | 2020-01-28 09:27 | NUR ---
DR. LOYD AT ROOM EXAMINES PATIENT AND UPDATES MOTHER.
--- NOTE | 2020-01-28 10:09 | NUR ---
NUTRIION F/U CHART REVIEWED, SPOKE WITH NURSING. PT REMAINS SEDATED ON VENT. OSMOLITE TUBE FEEDS CURRENTLY AT 20 CC/HR WITH GOAL RATE 40 CC/HR. WILL MONITOR DIPRIVAN RATE AND ADJUST TUBE FEEDS APPROPRIATE. RD FOLLOWING
--- NOTE | 2020-01-28 11:04 | NUR ---
REASSESSMENT COMPLETED. VSS. OGT PLACEMENT CHECKED VIA ASCULTATION RESIDUAL 170 ML. TURNED AND REPOSITIONED IN BED.
--- NOTE | 2020-01-28 11:42 | NUR ---
PATIENT PLACED ON CPAP TRIAL. HR - 99, RR - 20, VT - 448, SPO2 -98%, BP 113/55.
--- NOTE | 2020-01-28 11:45 | NUR ---
PS TRIAL 07/01
--- NOTE | 2020-01-28 12:30 | NUR ---
PATIENT TOLERATED 40 MINUTE PS TRIAL BEFORE REQUIRING BEING PLACED BACK ON A RATE. VANC TROUGH WAS 10.7, OK TO HANG NEXT VANC PER PHARMACY.
--- NOTE | 2020-01-28 12:45 | NUR ---
PATIENT TURNED AND REPOSITIONED IN BED. VSS.
--- NOTE | 2020-01-28 13:28 | NUR ---
SPOKE TO PATIENTS MOTHER AT LENGTH REGARDING PLAN OF CARE. PATIENTS MOTHER SPOKE TO A FAMILY FRIEND WHO IS A NEUROLOGIST AT [facility] REGARDING DAUGHTERS CONDITION AND IS REQUESTING A TRANSFER TO [facility]. SHE HAD SPOKE TO NEUROLOGY CHAIR AT [facility] WHO TOLD HER THAT THEY WOULD BE GLAD TO POSSIBLE ACCEPT HER OR TO CONSULT WITH DR. LOYD ON TREATMENT OPTIONS. PROVIDED TELEPHONE NUMBER [phone] FOR CONSULT LINE AT [facility]. DR. HARDEN ADVISED.
--- NOTE | 2020-01-28 13:52 | NUR ---
SPOKE TO DR. HARDEN REGARDING PATIENTS MOTHERS REQUEST TO TRANSFER DAUGHTER TO [facility], ADVISED SHE WILL INITIATE THE PROCESS FOR A POSSIBLE TRANSFER TO [facility]. CASE MANAGEMENT NOTIFIED.
--- NOTE | 2020-01-28 15:08 | NUR ---
REASSESSMENT COMPLETED. VSS. TURNED AND REPOSITIONED IN BED.
--- NOTE | 2020-01-28 16:30 | NUR ---
PATIENT GIVEN CHG BATH AND LINENS CHANGED. VSS.
--- NOTE | 2020-01-28 17:20 | NUR ---
PATIENT TURNED AND REPOSITIONED IN BED. VSS.
--- NOTE | 2020-01-28 19:00 | NUR ---
3:1 REPORT RECEIVED. INITIAL ASSESMENT COMPLETE SEE FLOWSHEET. SR ON CM ALARMS ON AND AUDIBLE CPOC
--- NOTE | 2020-01-28 23:00 | NUR ---
REASSESSMENT COMPLETE NO CHANGES. CPOC
[2020-01-29] VITALS (24 sets, daily range): BP systolic 99–142; BP diastolic 47–92
--- NOTE | 2020-01-29 03:00 | NUR ---
REASSESSMENT COMPLETE. OGT HOLD DUE TO HIGH RESIDUAL WILL PASS ON IN REPORT TO ONCOMING SHIFT. CPOC
[2020-01-29 06:33] LABS: BASOPHILS 0.2 % (0-2); EOSINOPHILS 5.5 % (0-7); HEMATOCRIT 34.7 % (36.0-48.0); HEMOGLOBIN 11.1 g/dL (12-16); IMMATURE GRANULOCYTES 0.6 % (0-5); LYMPHOCYTES 14.6 % (15-50); MONOCYTES 12.6 % (2-11); NEUTROPHILS 66.5 % (40-80); PLATELET COUNT 243 10x3/uL (130-400); RBC 3.47 10x6/uL (4.00-5.40); RDW 12.1 % (11.5-14.5)
[2020-01-29 06:38] LABS: CALC OSMOLALITY 267 mosm/kg (275-300); CARBON DIOXIDE 30.3 mmol/L (21.0-32.0); CHLORIDE - SERUM 103 mmol/L (98-107); CREATININE - SERUM 0.6 mg/dL (0.6-1.3); GLUCOSE 119 mg/dL (74-106); POTASSIUM - SERUM 3.8 mmol/L (3.5-5.1); SODIUM 135 mmol/L (136-145); UREA NITROGEN 4 mg/dL (7-18); eGFR NON AFRICAN AMERICAN > 90 mL/min (90-120)
--- NOTE | 2020-01-29 07:30 | NUR ---
opens eyes to stimulation. ett secure to vent bilateral lung sounds equal. og tube clamped. right subclavian central line tiple lumen infusing with diprivan at 75 mcg/kg/min. d20w at 150 ml hour, ns with 40 meq kcl at 50 ml hour. scd on lower legs working properly becerra cath patent draining clear clear mark urine. sedated no distress. monitor sr.
--- NOTE | 2020-01-29 09:00 | NUR ---
dr. stapleton here orders received to start on fentanyl and wean diprivan. patient repositioned. clean linen with turn sheet applied. large amount clear secretion orally. suction white sputum from ett/ hibclens bath given. hair pulled up. family sister here update given
--- NOTE | 2020-01-29 11:00 | NUR ---
repositioned. tube restarted at 10 ml hour. fentanyl increased to 100 mcg/hour. diprivan decreased to 60 mcg/kg/min.
--- NOTE | 2020-01-29 13:00 | NUR ---
dirpivan decreased to 30 mcg/kg/min. patient resting comfortably at this time. no distress. repositioned. heels bridged on pillow. no skin breakdown noted.
--- NOTE | 2020-01-29 15:24 | NUR ---
tolerating cpap on vent well. no distress. resp non larbored deep and regular. tv greater than 400ml resp rate 18-20. head of bed elevated 30 degrees.
--- NOTE | 2020-01-29 17:00 | NUR ---
TOLERATING CPAP WELL NO RESP DISTRESS. NOTED. RESTLESS AT TIMES. MOVING ALL EXTREMITITES. NOT MAKING EYE CONTACT, NOT OBEYING COMMANDS.
--- NOTE | 2020-01-29 19:00 | NUR ---
REPORT RECEIVED. PT OPENS EYES TO VERBAL STIMULI DOES NOT FOLLOW COMMANDS BUT APPEARS TO ATTEMPT TO TURN HEAD TO VOICE. SEDATED WITH FENTANYL AND DIPRIVAN ORALLY INTUBATED. CM READING SR WITHOUT ECTOPY ALARMS ON AND AUDIBLE ABD SOFT NONTENDER. TUBE FEEDING VIA OGT WITH RESIDUAL OF 45 WILL CONTINUE TO MONITOR
--- NOTE | 2020-01-29 20:00 | NUR ---
ACCUCHECK 120 NO COVERAGE
--- NOTE | 2020-01-29 23:00 | NUR ---
REASSESSMENT COMPLETE NO CHANGES CPOC SUCTIONED MODERATE AMOUNT THICK CLEAR SECRETIONS ORALLY AND VIA ETT. ORAL CARE AND REPOSITIONED FOR COMFORT WILL CONTINUE TO MONITOR
[2020-01-30] VITALS (24 sets, daily range): BP systolic 100–141; BP diastolic 48–90
--- NOTE | 2020-01-30 01:13 | NUR ---
ACCUCHECK 104 NO COVERAGE JUST CHECKING Q4H PER ORDERS
--- NOTE | 2020-01-30 01:40 | NUR ---
ORAL CARE MODERATE AMOUNT THICK CLEAR SECRETIONS ORALLY AND VIA ETT. O2 SAT 98%.
--- NOTE | 2020-01-30 03:00 | NUR ---
REASSESSMENT COMPLETE NO CHANGES CPOC
[2020-01-30 06:23] LABS: BASOPHILS 0.2 % (0-2); EOSINOPHILS 6.8 % (0-7); HEMOGLOBIN 10.5 g/dL (12-16); IMMATURE GRANULOCYTES 0.5 % (0-5); LYMPHOCYTES 16.9 % (15-50); MCHC 31.8 g/dL (31.0-37.0); MCV 100.6 fL (80.0-100.0); MONOCYTES 13.4 % (2-11); NEUTROPHILS 62.2 % (40-80); PLATELET COUNT 259 10x3/uL (130-400); RBC 3.28 10x6/uL (4.00-5.40); RDW 11.9 % (11.5-14.5); WBC 8.5 10x3/uL (4.8-10.8)
[2020-01-30 06:47] LABS: CALC OSMOLALITY 269 mosm/kg (275-300); CARBON DIOXIDE 29.9 mmol/L (21.0-32.0); CHLORIDE - SERUM 103 mmol/L (98-107); GLUCOSE 115 mg/dL (74-106); POTASSIUM - SERUM 3.6 mmol/L (3.5-5.1); SODIUM 136 mmol/L (136-145); UREA NITROGEN 3 mg/dL (7-18)
[2020-01-30 06:49] LABS: CREATININE - SERUM 0.4 mg/dL (0.6-1.3); eGFR NON AFRICAN AMERICAN > 90 mL/min (90-120)
--- NOTE | 2020-01-30 08:18 | NUR ---
PT WITHDRAWLS TO STIMULI. SUCTIONING AND MOUTH CARE. DOES NOT FOLLOW COMMAND. REQUIRES FREQ SUCTIONING.
--- NOTE | 2020-01-30 10:39 | NUR ---
DR LOPEZ HERE ON ROUNDS. VSS. TURNED AND POSITIONED FOR COMFORT.
--- NOTE | 2020-01-30 11:34 | NUR ---
SEDATION OFF ORDERED BY DR LOYD. TF OFF AND FLUSHED FOR PATENCY.
--- NOTE | 2020-01-30 14:10 | NUR ---
PT EXTUBATED TO 4LNC. ALL SEDATION TAKEN DOWN AND WASTED.
--- NOTE | 2020-01-30 15:00 | NUR ---
SPOKE TO RESIDENTIAL RE: SITTER FOR PT. RYAN REPORTS THAT SHE DOES NOT HAVE SITTER AVAILABLE AT PRESENT TIME. HOUSE SUPP NOTIFIED.
--- NOTE | 2020-01-30 17:11 | NUR ---
DR. MATA NOTIFIED AND SITTER ORDERED. SITTER AT BEDSIDE. NOTIFIED CHARGE NURSE AND ATTENDING IN REGARDS TO ASSESSMENT UNABLE TO BE OBTAIN AT THIS TIME. PATIENT IS UNABLE MTO ANSWER QUESTIONS. WILL ATTEMPT OASSESSMENT LATER.
--- NOTE | 2020-01-30 19:00 | NUR ---
REPORT RECEIVED. INITIAL ASSESMENT COMPLETE. PT ALERT AND ANSWERS SOME QUESTIONS APPROPRIATELY. KNOWS IT IS 2019 AND JANUARY BUT DOES NOT KNOW WHAT HAPPENED AND WHERE SHE IS. REORIENTED TO UNIT AND WHITE BOARD UPDATED WITH DATE TIME AND INFORMATION. PT APPEARS FLAT AND WITHDRAWN SEEMS CHILDLIKE AT TIMES WHILE CONVERSING. VOICE IS VERY LOW AND RASPY DIFFICULT TO UNDERSTAND AT TIMES. ON ROOM AIR WITH O2 SAT 100%. RESP EVEN AND NONLABORED CHEST CLEAR. CM READING SR-LOW ST WHEN ANXIOUS UP TO 122'S. ABD SOFT NONTENDER. RIGHT TLSC NOTED SEE IV DRIP SHEET AND FLOWSHEETS. HATFIELD PATENT WITH DARK YELLOW URINE. SKIN W/D PPP. SCARS TO ALLY THIGHS FROM PT HISTORY OF CUTTING SELF. BED IN LOW POSITION SIDE RAILS UP TIMES 3 FOR BED MOBILITY AND SAFETY. 1:1 SITTER AT BEDSIDE AT ALL TIMES WILL CONTINUE TO MONITOR
--- NOTE | 2020-01-30 21:30 | NUR ---
RIGHT TLSC DRESSING SOILED CLEANED AND REDRESSED WITH BIOPATCH USING STERILE TECHNIQUE PT TOLERATED WELL
--- NOTE | 2020-01-30 23:00 | NUR ---
REASSESSMENT COMPLETE NO CHANGES PT DENIE PAIN OR DISCOMFORT DOES CONTINUE NOT MAKING SENSE WITH CONVERSATION BUT EASILY REDIRECTED. VSS AT THIS TIME CPOC
[2020-01-31] VITALS (18 sets, daily range): BP systolic 104–133; BP diastolic 48–98; Ht 167.6 cm; Wt 95.6 kg
--- NOTE | 2020-01-31 02:45 | NUR ---
1:1 SITTER WITH PT CALLING FOR NURSE STATES PT UPSET AND NOT MAKING SENSE. IN TO SPEAK WITH PT REORIENTED TO UNIT INFORMED SHE WAS IN HOSPITAL AND IN INTENSIVE CARE UNIT. ATTEMPTS TO REDIRECT SUCCESSFUL. PT CONFUSED BUT DOES CALM DOWN AND ATTEMPT TO RELAX WILL CONTINUE TO MONITOR. SITTER REMAINS AT BEDSIDE 1:1
--- NOTE | 2020-01-31 03:00 | NUR ---
REASSESSMENT COMPLETE SITTER REMAINS AT BEDSIDE 1:1. NO CHANGES WILL CONTINUE TO MONITOR CPOC
--- NOTE | 2020-01-31 05:10 | NUR ---
COMPLETE BED BATH LINEN CHANGE SHAMPOO HAIR WITH SHAMPOO CAP. PT ASSISTED WITH MINIMAL TASKS PT CHILDLIKE DID SMILE AND LAUGH WITH NURSE WILL CONTINUE TO MONITOR
[2020-01-31 07:00] LABS: CALCIUM 8.6 mg/dL (8.5-10.1); CARBON DIOXIDE 28.6 mmol/L (21.0-32.0); CHLORIDE - SERUM 102 mmol/L (98-107); GLUCOSE 131 mg/dL (74-106); SODIUM 137 mmol/L (136-145)
[2020-01-31 07:01] LABS: CALC OSMOLALITY 272 mosm/kg (275-300); CREATININE - SERUM 0.6 mg/dL (0.6-1.3); POTASSIUM - SERUM 3.7 mmol/L (3.5-5.1); UREA NITROGEN 5 mg/dL (7-18); eGFR NON AFRICAN AMERICAN > 90 mL/min (90-120)
[2020-01-31 07:14] LABS: BASOPHILS 0.3 % (0-2); EOSINOPHILS 5.4 % (0-7); IMMATURE GRANULOCYTES 0.7 % (0-5); LYMPHOCYTES 24.7 % (15-50); MCH 32.2 pg (26.0-34.0); MCHC 32.4 g/dL (31.0-37.0); MCV 99.3 fL (80.0-100.0); MEAN PLATELET VOLUME 10.7 fL (7.4-10.4); MONOCYTES 13.7 % (2-11); NEUTROPHILS 55.2 % (40-80); RDW 11.9 % (11.5-14.5); WBC 8.9 10x3/uL (4.8-10.8)
[2020-01-31 07:15] LABS: HEMATOCRIT 39.8 % (36.0-48.0); HEMOGLOBIN 12.9 g/dL (12-16); PLATELET COUNT 320 10x3/uL (130-400); RBC 4.01 10x6/uL (4.00-5.40)
--- NOTE | 2020-01-31 07:25 | NUR ---
PT RESTING COMFORTABLY ASSESSMENT COMPLETE PER FLOW SHEET. VSS. PT DENIES NEEDS WILL CONTINUE TO MONITOR
--- NOTE | 2020-01-31 09:50 | NUR ---
MARY WITH SPEECH AT BEDSIDE GIVENUDPATE. NEW ORDERS RECEIVED
--- NOTE | 2020-01-31 11:00 | NUR ---
REASESSMENT COMPLETE PER FLOW SHEET. VSS. PT RESTING COMFORTABLY WILL CONTINUE TO MONITOR
--- NOTE | 2020-01-31 11:03 | NUR ---
Nutrition follow-up: Pt extubated 01/29; diet has advanced to mechanical soft with honey thick liquids per speech Labs reviewed WT: 210# RDN monitoring pts po intake and progress.
--- NOTE | 2020-01-31 14:31 | NUR ---
OT NOTE: PT REQUIRED MAX A X2 FOR POSITIONING IN BED. PT REQUIRED MAX A WITH SIMPLE HYGIENE TASKS. PT EXHIBITED IMPAIRED DEPTH PERCEPTION AND BUE COORDINATION. [phone] THANK YOU,MIL LANGFORD
--- NOTE | 2020-01-31 16:00 | NUR ---
PT ATTEMPTING TO RIP OUT CVL, HATFIELD, AND MONITORS. ATTEMPT TO DISTRACT WITH NO EFFECT. PT HITTING AND KICKING NURSES. PT PLACED INTO BILAT WRIST RESTRAINTS.
--- NOTE | 2020-01-31 19:00 | NUR ---
REPORT RECEIVED. PT DISORIENTED TO TIME, PLACE, SITUATION. PT MUMBLING TO SELF AT THIS TIME. RT SUBCLAVIAN CVL INFUSING, SEE IV FLOWSHEET. ASSESSMENT COMPLETED, SEE FLOWSHEET.
--- NOTE | 2020-01-31 21:00 | NUR ---
PT RESTING IN BED, NO ACUTE DISTRESS NOTED.
--- NOTE | 2020-01-31 23:00 | NUR ---
REASSESSMENT COMPLETED, SEE FLOWSHEET.
[2020-02-01] VITALS (15 sets, daily range): BP systolic 84–149; BP diastolic 57–95
--- NOTE | 2020-02-01 01:00 | NUR ---
PT RESTING IN BED, NO ACUTE DISTRESS NOTED.
--- NOTE | 2020-02-01 03:00 | NUR ---
REASSESSMENT COMPLETED, SEE FLOWSHEET.
--- NOTE | 2020-02-01 05:00 | NUR ---
PT RESTING QUIETLY IN BED, NO COMPLAINTS AT THIS TIME.
[2020-02-01 06:11] LABS: BASOPHILS 0.3 % (0-2); EOSINOPHILS 2.9 % (0-7); HEMATOCRIT 38.5 % (36.0-48.0); HEMOGLOBIN 12.5 g/dL (12-16); IMMATURE GRANULOCYTES 0.5 % (0-5); LYMPHOCYTES 24.6 % (15-50); MCH 32.1 pg (26.0-34.0); MCHC 32.5 g/dL (31.0-37.0); MCV 98.7 fL (80.0-100.0); MEAN PLATELET VOLUME 9.5 fL (7.4-10.4); MONOCYTES 10.5 % (2-11); NEUTROPHILS 61.2 % (40-80); PLATELET COUNT 352 10x3/uL (130-400); RDW 12.1 % (11.5-14.5); WBC 10.3 10x3/uL (4.8-10.8)
[2020-02-01 06:20] LABS: ALBUMIN 2.8 g/dL (3.4-5.0); ALKALINE PHOSPHATASE 128 U/L (30-120); ALT (SGPT) 56 U/L (10-68); BILIRUBIN - DIRECT 0.16 mg/dL (0.00-0.30); BILIRUBIN - INDIRECT 0.34 mg/dL (0.00-1.00); CALC OSMOLALITY 272 mosm/kg (275-300); CALCIUM 8.7 mg/dL (8.5-10.1); CARBON DIOXIDE 27.5 mmol/L (21.0-32.0); CHLORIDE - SERUM 101 mmol/L (98-107); CREATININE - SERUM 0.6 mg/dL (0.6-1.3); GLUCOSE 123 mg/dL (74-106); MAGNESIUM - SERUM 2.2 mg/dL (1.8-2.4); PHOSPHOROUS 4.7 mg/dL (2.5-4.9); POTASSIUM - SERUM 4.2 mmol/L (3.5-5.1); PROTEIN - SERUM 7.8 g/dL (6.4-8.2); SODIUM 136 mmol/L (136-145); eGFR NON AFRICAN AMERICAN > 90 mL/min (90-120)
[2020-02-01 06:21] LABS: UREA NITROGEN 13 mg/dL (7-18)
--- NOTE | 2020-02-01 09:14 | NUR ---
PT SLEEPING COMFORTABLY NO NEW CHANGES ATE 3 BITES OF BREAKFAST.
--- NOTE | 2020-02-01 11:58 | NUR ---
OT NOTE: SPOKE WITH NURSING WHO ASKED IF WE COULD ATTEMPT TO GET PT UP AND AMBULATE. PT VERY LETHARGIC AND DIFFICULT TO KEEP AWAKE. MOD/MAX ASSIST TO EOB; MOD ASSIST FOR STATIC SITTING; SIT TO STAND WIHT MAX ASSIST X 2; ABLE TO TAKE 4-5 SIDE STEPS WITH UE SUPPORT. PERFORMED COGNITIVE TASKS.. PT IS ALERT TO PERSON AND PLACE (WITH VERBAL CUES FOR PLACE) ; MEMORY RECALL IS LESS THAN 2 SECONDS; SLURRED SPEECH; PT AGAIN WAS ABLE TO REMEMBER WHERE SHE WORKED BUT DID NOT REMEMBER ANYTHING ABOUT PRIOR LIVING SITUATION OR LEVEL OF FUNCTION. WILL PROGRESS TOLERATED. SUPA SHOOK, OTR/L [phone]
--- NOTE | 2020-02-01 12:58 | NUR ---
PT REFUSED LUNCH
--- NOTE | 2020-02-01 15:19 | NUR ---
REASSESSMENT COMPLETE PER FLOW SHEET. VSS. PT RESTING COMFORTABLY WILL CONTINUE TO MONITOR
--- NOTE | 2020-02-01 17:20 | NUR ---
PT SLEEPING COMFORTABLY. FAMILY CALLED. STATED PASSWORD GIVEN UPDATE.
--- NOTE | 2020-02-01 17:37 | NUR ---
OT NOTE: PT REQUIRED MAX X2 FOR SUPINE TO SIT . PT COMPLETED SIT TO STAND WITH MOD A X2. PT COMPLETED SIDE STEPPING WITH MIN A X2. PT MOST MARKED DEFICITS NOTED TO BE LACK OF COORDINATION, SLURRED SPEECH, DISCORD IN MEMORY RETENTION FOR SHORT TERM/RECALL, FM DEFICITS, AND PROCESSING OF STEPS TO COMPLETE ACTIVITIES. PT WILL REQUIRE ASSISTANCE WITH ALL ADLS/IADLS AT THIS TIME. PT REQUIRED MIN A WITH SIMPLE FACE HYGIENE. [phone] THANK YOU,MIL LANGFORD
--- NOTE | 2020-02-01 19:00 | NUR ---
REPORT RECEIVED. PT RESTING IN BED, NO ACUTE DISTRESS NOTED. ASSESSMENT COMPLETED, SEE FLOWSHEET. RT SUBCLAVIAN CVL INFUSING, SEE IV FLOWSHEET. WILL CONTINUE TO MONITOR.
--- NOTE | 2020-02-01 21:00 | NUR ---
PT RESTING IN BED, NO ACUTE DISTRESS NOTED. WILL CONTINUE TO MONITOR.
[2020-02-02 03:00] VITALS: BP 120/64
--- NOTE | 2020-02-02 05:00 | NUR ---
2300 - PT SITTING UP IN BED, NO ACUTE DISTRESS NOTED. 0100 - PT RESTING IN BED, NO FURTHER COMPLAINTS AT THIS TIME. 0300 - PT ATTEMPTED TO GET OUT OF BED, REORIENTED NEEDED. 0500 - PT RESTING QUIETLY IN BED, NO SIGNS OF ACUTE DISTRESS.
[2020-02-02 07:00] VITALS: BP 110/68
--- NOTE | 2020-02-02 07:08 | NUR ---
REPORT RECEIVED. ASSESSMENT COMPLETE PER FLOW SHEET. VSS. PT RESTING COMFORTABLY WILL CONTINUE TO MONITOR
--- NOTE | 2020-02-02 09:20 | NUR ---
DR CARTER AT BEDSIDE. GIVEN UPDATE. NEW ORDERS RECEIVED.
--- NOTE | 2020-02-02 09:29 | NUR ---
DR. CARTER AT BEDSIDE, NEW ORDERS RECIEVED,
[2020-02-02 11:00] VITALS: BP 114/71
--- NOTE | 2020-02-02 11:05 | NUR ---
REASSESSMENT COMPLETE PER FLOW SHEET. VSS. PT RESTING COMFORTABLY WILL CONTINUE TO MONITOR
--- NOTE | 2020-02-02 11:06 | NUR ---
Nutrition follow-up: Pt receiving a regular mechanical soft diet with honey thick liquids Pt is refusing some meals; has been lethargic per nurse Wt: 211# Will provide food choices and honor food preferences. Will offer nutritional supplements. RDN following.
--- NOTE | 2020-02-02 11:49 | NUR ---
PT EATING ON OWN. DENIES NEEDS ANNABEL CONTINUE TO MONITOR
--- NOTE | 2020-02-02 14:39 | NUR ---
OT NOTE: PT DOING BETTER TODAY. PT WAS SITTING UP ON EOB.. GOOD BALANCE. NURSING REPORTED THAT PT WAS ABLE TO BRING FOOD TO MOUTH WITH FINGER FOODS.. PT STILL UNABLE TO MANIPULATE UTENSILS DUE TO IMPAIRED COORDINATION. WILL PERFORM FURTHER ASSESSMENT TOMORROW, HOWEVER, PT APPEARS TO HAVE SOME VISUAL IMPAIREMENTS INCLUDING DEPTH/FOREGROUND PERCEPTION. PT WAS ABLE TO AMB WITH MIN ASSIST X 2 GREATER THAN 75 FT. VERY FATIGUED UPON RETURN TO ROOM. REMAINS CONFUSED WITH STM DEFECITS. SUPA SHOOK, OTR/L [id number]
[2020-02-02 15:00] VITALS: BP 119/71
--- NOTE | 2020-02-02 18:10 | NUR ---
OT NOTE: PT COMPLETED SIT TO STAND WITH MIN A. PT COMPLETED ALD MOB WITH MIN A. PT COMPLETED BUE AROM AXS. PT IS MUCH IMPROVED TODAY WITH FUNCTIONAL INDEPENDENCE. PT EXHIBITED IMPAIRED FM/GM SKILLS. [id number] THANK YOU,MIL LANGFORD
--- NOTE | 2020-02-02 19:30 | NUR ---
INTRODUCED SELF TO PT. SHE IS SITTING IN THE CHAIR AT THE BEDSIDE COMBING HER HAIR. SHE SPEAKS VERY SOFTLY. EXPLAINED TO HER THAT I WOULD BE BACK TO DO AN ASSESSMENT.
[2020-02-02 20:15] VITALS: BP 100/68
--- NOTE | 2020-02-02 20:30 | NUR ---
PT STILL SITTING AT BEDSIDE. ASSESSMENT COMPLETED. PUPILS ARE 4-5 BUT RESPOND WELL TO LIGHT. PT IS NOW ON A REGULAR DIET SO SHE CAN HAVE CLEAR LIQUIDS. HEART SOUNDS WNL, LUNGS CLEAR AND BS HEARD IN ALL QUADRANTS. ABD IS SOFT AND NONTENDER. SHE VOIDS WELL WITHOUT DIFFICULTY IN THE BSC AT BEDSIDE. SHE TRANSFERS FROM CHAIR TO BE WITH MIN ASSIST. SHE REQUIRES SOME VERBAL CUES TO DO THINGS. NO C/O PAIN AT THIS TIME. SHE STATES SHE HAS NO SUICIDAL THINKING OF FEELING AT THIS TIME. SHE IS STILL COMBING HER HAIR ON AND OFF.
--- NOTE | 2020-02-02 21:15 | NUR ---
PT IS STILL SITTING IN A CHAIR COMBING HER HAIR. SHE HAS NO NEEDS AND NO C/O PAIN NOW. SHE LIKES TO TELL STORIES ABOUT HERSELF.
--- NOTE | 2020-02-02 21:31 | MORECARE ---
CASE MANAGEMENT DISCHARGE SUMMARY PATIENT: SANA PEACE UNIT: [id number] ADM DATE: 01/22/20 AGE: 24 : 97 SEX: F ROOM/BED: D.2305 AUTHOR: TORRI,DOC PHYSICIAN: REFERRING PHYSICIAN: BRENT HESTER DO DATE OF SERVICE: 02/02/20 Discharge Plan Patient Name: SANA PEACE Facility: [facility]:[place] : 1995 Planned Disposition: Anticipated Discharge Date: Discharge Date: Expected LOS: Initial Reviewer: [email or web address] Initial Review Date: 01/22/2020 Generated: 02/02/20 10:30 pm DCP- Discharge Planning Updated by [email or web address]: Gina Anderson on 01/25/20 7:[address] Patient Name: SANA PEACE Admission Status: ER Accout number: [id number] Admission Date: 01-22-2020 : 1995 Admission Diagnosis:POISONING BY OTH DRUG/MEDS/BIOL SUBST, SELF-HARM, INIT Attending: BRENT HESTER Current LOS: 3 Anticipated DC Date: Planned Disposition: Primary [place] [employer] Discharge Planning Comments: CM met with patient's sister Tatiana Reynoso to complete initial dc planning assessment. CM educated patient on the CM role and verbal consent given by patient to complete assessment. Patient lives at home with room-mate. Patient is independent. At discharge patient will most likely need inpatient psych placement since this admission was related to a suicide attempt. CM will continue to follow and will assist as needed with dc plans/needs. Product Management Consultant: Gina Anderson DCPIA - Discharge Planning Initial Assessment Updated by [email or web address]: Gina Anderson on 01/25/20 8:02 pm * Is the patient Alert and Oriented? Yes * How many steps to enter\exit or inside your home? * PCP unknown - Patience Garvey - therapist * Pharmacy [facility] * Preadmission Environment Home with Family * ADLs Independent * List name and contact numbers for known caregivers / representatives who currently or will assist patient after discharge: Tatiana Reynoso - sister - [phone] * Verbal permission to speak to the caregivers and representatives has been obtained from the patient. N/A * Community resources currently utilized None * Additional services required to return to the preadmission environment? No * Can the patient safely return to the preadmission environment? Yes * Has this patient been hospitalized within the prior 30 days at any hospital? No External Providers External Provider: [facility] Next Contact Date: Service Request Date: Service Type: Resolution: Reviewer: Comments: Last DP export: 01/25/20 7:11 p Patient Name: SANA PEACE Page [phone] at 2131 All edits/amendments must be made on the electronic document DICTATION DATE: 02/02/202130 CLINICAL MATERIAL HANDLER: KODY 02/02/202130 RPT#: [id number] DC DATE: STATUS: ADM IN [facility] [address] [place] [address] END OF REPORT
--- NOTE | 2020-02-02 21:40 | NUR ---
IV PEPCID ORDERED. PT HAS A RIGHT SUBCLAVIAN TRIPLE PORT. HER LINE WAS FLUSHED WITH NS AND MED GIVEN DILUTED WITH NS. LINE WAS FLUSHED AGAIN WITH NS. LINE FLUSHED EASILY AND MEDICATION WENT IN EASILY. SITE LOOK GOOD. NO REDNESS OR DRAINAGE NOTED. SHE HAS A GOWN ON FRONT AND BACK WHICH PROTECTS HER FROM MESSING WITH HER IV. AT THIS TIME PT IS IN BED. SHE NEEDED MIN ASSIST TO TRANSFER WITH SOME VERBAL CUES.
--- NOTE | 2020-02-02 22:30 | NUR ---
ESTEPHANIA WHITE RN FROM CASE MANAGEMENT CALLED TO LET ME KNOW THAT SHE HAS TALKED TO MIAN AT THE TRANSFER CENTER WORKING ON PT. TRANSFER. SHE HAS FAX THEM PT NOTES, THERAPY NOTES, ETC...SHE IS WAITING TO HEAR BACK FROM THEM HOPEFULLY TOMORROW. PT IS RESTING QUIETLY IN BED.
--- NOTE | 2020-02-02 22:30 | NUR ---
I LET THE PT KNOW THAT OUR GOLD AND SILVER ASSAYER, ESTEPHANIA WHITE RN, HAS TALKED TO MIAN AT THE TRANSFER CENTER ABOUT TRANSFER. PT GETS EXCITED THINKING SHE IS GOING TO GET TO STAY WITH HER SISTER. SHE TOLD ME THAT SHE HAD FIGURED OUT THE QUESTIONS THE CM ASKED AND SHE KNOWS HOW TO ANSWER THEM AND MANIPUALTE THE SYSTEM.
--- NOTE | 2020-02-02 22:35 | MORECARE ---
CASE MANAGEMENT DISCHARGE SUMMARY PATIENT: SANA PEACE UNIT: [id number] ADM DATE: 01/22/20 AGE: 24 : 97 SEX: F ROOM/BED: D.2305 AUTHOR: TORRI,DOC PHYSICIAN: REFERRING PHYSICIAN: BRENT HESTER DO DATE OF SERVICE: 02/02/20 Discharge Plan Patient Name: SANA PEACE Facility: [facility]:[place] : 1995 Planned Disposition: Anticipated Discharge Date: Discharge Date: Expected LOS: Initial Reviewer: [email or web address] Initial Review Date: 01/22/2020 Generated: 02/02/20 11:34 pm Comments DCP- Discharge Planning Updated by [id number]: Ana Luisa Cortez on 02/02/20 9:[address] Patient Name: SANA PEACE Admission Status: ER Accout number: [id number] Admission Date: 01-22-2020 : 1995 Admission Diagnosis:POISONING BY OTH DRUG/MEDS/BIOL SUBST, SELF-HARM, INIT Attending: BRENT HESTER Current LOS: 11 Anticipated DC Date: 02/02/20 Planned Disposition: Inpatient Psych Facility Primary Insurance: [place] [employer] Discharge Planning Comments: Late entry for 02/02/20 09:30: CM received call from ICU nurse stating MD stated patient is ready for discharge to Inpatient Psych facility. CM called [facility], spoke with Lina about referral. Reviewed medical record with Lina. Will send copy of record as requested. 10:25 CM received call back that facility would not be able to accept patient at this time due to the level of care needed with ADL's and IADL's. CM informed Lina that PT, OT, and ST would see patient again today and CM would let her know if functional level improves. 22:00 CM called transfer center with referral. Spoke with Estephania about referral. Faxed records as requested. CM notified ICU nurse, Germaine, of status of placement. Manager Statistical: Ana Luisa Cortez DCP- Discharge Planning Updated by [email or web address]: Gina Anderson on 01/25/20 7:[address] Patient Name: SANA PEACE Admission Status: ER Accout number: [id number] Admission Date: 01-22-2020 : 1995 Admission Diagnosis:POISONING BY OTH DRUG/MEDS/BIOL SUBST, SELF-HARM, INIT Attending: BRENT HESTER Current LOS: 3 Anticipated DC Date: Planned Disposition: Primary Insurance: [place] [employer] Discharge Planning Comments: CM met with patient's sister Tatiana Reynoso to complete initial dc planning assessment. CM educated patient on the CM role and verbal consent given by patient to complete assessment. Patient lives at home with room-mate. Patient is independent. At discharge patient will most likely need inpatient psych placement since this admission was related to a suicide attempt. CM will continue to follow and will assist as needed with dc plans/needs. Manager Statistical: Gina Anderson DCPIA - Discharge Planning Initial Assessment Updated by [email or web address]: Gina Anderson on 01/25/20 8:02 pm * Is the patient Alert and Oriented? Yes * How many steps to enter\exit or inside your home? * PCP unknown - Patience Garvey - therapist * Pharmacy [facility] * Preadmission Environment Home with Family * ADLs Independent * List name and contact numbers for known caregivers / representatives who currently or will assist patient after discharge: Tatiana Reynoso - sister - [phone] * Verbal permission to speak to the caregivers and representatives has been obtained from the patient. N/A * Community resources currently utilized None * Additional services required to return to the preadmission environment? No * Can the patient safely return to the preadmission environment? Yes * Has this patient been hospitalized within the prior 30 days at any hospital? No Last DP export: 02/02/20 8:31 pm Patient Name: SANA PEACE Page 26612 at 2235 All edits/amendments must be made on the electronic document DICTATION DATE: 02/02/202233 FINANCE LEAD: KODY 02/02/202233 RPT#: [id number] DC DATE: STATUS: ADM IN [facility] [address] [place] [address] END OF REPORT
--- NOTE | 2020-02-02 22:55 | NUR ---
REPORT GIVEN BY ICU NURSE
--- NOTE | 2020-02-02 23:10 | NUR ---
PT IS STILL AWAKE WATCHING TV. NO C/O OR NEEDS
--- NOTE | 2020-02-02 23:10 | NUR ---
PT STILL AWAKE WATCHING TV. NO C/O OR NEEDS
[2020-02-03 00:05] VITALS: BP 110/68
--- NOTE | 2020-02-03 00:05 | NUR ---
VS TAKEN. PT ASKED FOR LIGHTS TO BE TURNED OUT SO SHE CAN SLEEP.
--- NOTE | 2020-02-03 02:05 | NUR ---
PT IS STILL AWAKE. SHE PUT HER LIGHT ON AND ASKED FOR HER NURSE. WHEN I GOT IN HER ROOM SHE SAID, "I'M DOING FINE". I TOLD HER SHE NEEDED TO GO TO SLEEP IN CASE SHE TRANSFERS SOMEWHERE. SHE SAID I WANT TO BE FREE. SITTER HAS BEEN OUTSIDE HER ROOM ALL SHIFT. CALL LIGHT IS WITHIN REACH. NO C/O OR NEEDS.
[2020-02-03 04:05] VITALS: BP 105/64
--- NOTE | 2020-02-03 05:25 | NUR ---
PT IS SITTING IN HER DOORWAY WANTING TO GET OUT OF HER ROOM. SHE STOOD UP ONE TIME AND THE SITTER AND I CAUGHT HER. I PUT THE BRAKES ON THE CHAIR SO SHE COULDN'T MOVE FORWARD ANY MORE. SHE IS STILL TRYING TO GET OUT. I TOLD HER THAT SHE WASN'T ALLOWED TO GET OUT OF HER ROOM. SHE HAS BEEN BRUSHING HER HAIR SINCE SHE GOT UP. THE SITTER KNOWS TO WATCH HER EVERY MINUTE SO SHE DOESN'T FALL AND TO CALL ME IF THERE ARE ANY PROBLES.
--- NOTE | 2020-02-03 06:38 | NUR ---
PT IS STILL SITTING IN THE CHAIR IN HER ROOM TRYING TO GET OUT OF THE ROOM. SHE HAS NO C/O AT THIS TIME.
[2020-02-03 07:00] VITALS: BP 120/72
--- NOTE | 2020-02-03 08:24 | NUR ---
SITTING UP IN CHAIR BESIDE BED EATING BREAKFAST AT THIS TIME. VSS. NO ACUTE DISTRESS NOTED. CALL LIGHT IN REACH. SITTER AT DOORWAY. PT NOTED TO HAVE DELUSIONS OF PEOPLE BEING LOCKED UP AND UNABLE TO ANSWER ORIENTATION QUESTIONS WHEN ASKED, ONLY STATED NAME. WHEN ASKED OTHER ORIENTATION QUESTIONS SUCH LOCATION, TIME, OR SITUATION PT THEN TALKED WITH THIS NURSE ABOUT THE PEOPLE WHO WERE ARRESTED. ORIENTATION PROVIDED TO PT. UNSUCCESSFUL. WILL CONTINUE PLAN OF CARE.
--- NOTE | 2020-02-03 10:27 | NUR ---
SITTING UP IN CHAIR AT THIS TIME. VSS. NO ACUTE DISTRESS NOTED. CALL LIGHT IN REACH. WILL CONTINUE PLAN OF CARE.
--- NOTE | 2020-02-03 10:50 | NUR ---
PER DR RAUL KHAN IV FLUIDS AND DC CVL.
[2020-02-03 11:00] VITALS: BP 116/80
--- NOTE | 2020-02-03 11:06 | NUR ---
1100 RECEIVED BEDSIDE REPORT FROM KIM MACKEY PT SITTING UP IN CHAIR QUIETLY SITTER OUTSIDE ROOM WITH CONTINUOUS LINE OF SITE OBSERVATION.
--- NOTE | 2020-02-03 11:15 | NUR ---
1115 PATIENT STANDING BY CHAIR SITTER AND RN ENCOURAGED HER TO RETURN TO CHAIR PLACED PILLOWS FOR COMFORT AND PUT CHAIR IN RECLINER POSITION CONTINUE WITH ONGOING OBSERVATION
--- NOTE | 2020-02-03 11:45 | MORECARE ---
CASE MANAGEMENT DISCHARGE SUMMARY PATIENT: SANA PEACE UNIT: [id number] ADM DATE: 01/22/20 AGE: 24 : [birth year] SEX: F ROOM/BED: D.2305 AUTHOR: TORRIDOC PHYSICIAN: REFERRING PHYSICIAN: BRENT HESTER DO DATE OF SERVICE: 02/03/20 Discharge Plan Patient Name: SANA PEACE Facility: [facility]:[place] : 1995 Planned Disposition: Anticipated Discharge Date: Discharge Date: Expected LOS: Initial Reviewer: [email or web address] Initial Review Date: 01/22/2020 Generated: 02/03/20 12:44 pm Comments DCP- Discharge Planning Updated by [id number]: Ana Luisa Cortez on 02/03/20 10:[address] 11:37 Recived call back form Santana stating he has spoken with [facility] about patient level of care. [facility] has requested updated records. ALEKSANDER informed Santana that clinical update has been faxed and should be received soon. He will fax update to [facility]. DCP- Discharge Planning Updated by [email or web address]: Ana Luisa Cortez on 02/03/20 10:[address] 10:00 CM called Transfer Center to check on status of Inpatient Psych placement. ALEKSANDER spoke with Santana. Santana informed that agency has referred patient to: [facility], [facility], and [facility] and all three said they could not accept patient because they were "at capacity"; [facility] declined stating patient needed a Med Surg / Psych facility and they could not meet patient's needs; and [facility] states they will consider patient when she is no longer in ICU. ALEKSANDER asked Santana to follow up with [facility] to let them know that patient is only in ICU bed for 1:1 sitter. Patient is not getting ICU level of care. Santana states he will call [facility] about this. will continue to follow. ALEKSANDER faxed clinical update to [facility]. DCP- Discharge Planning Updated by [id number]: Ana Luisa Cortez on 02/02/20 9:[address] Patient Name: SANA PEACE Admission Status: ER Accout number: [id number] Admission Date: 01-22-2020 : 1995 Admission Diagnosis:POISONING BY OTH DRUG/MEDS/BIOL SUBST, SELF-HARM, INIT Attending: BRENT HESTER Current LOS: 11 Anticipated DC Date: 02/02/20 Planned Disposition: Inpatient Psych Facility Primary Insurance: [employer] [place] PRIVATE OPTIONS [facility] Discharge Planning Comments: Late entry for 02/02/20 09:30: CM received call from ICU nurse stating MD stated patient is ready for discharge to Inpatient Psych facility. CM called [facility], spoke with Lina about referral. Reviewed medical record with Lina. Will send copy of record as requested. 10:25 CM received call back that facility would not be able to accept patient at this time due to the level of care needed with ADL's and IADL's. CM informed Lina that PT, OT, and ST would see patient again today and CM would let her know if functional level improves. 22:00 CM called transfer center with referral. Spoke with Estephania about referral. Faxed records as requested. CM notified ICU nurse, Germaine, of status of placement. Produce Department Supervisor: Ana Luisa Cortez DCP- Discharge Planning Updated by [email or web address]: Gina Anderson on 01/25/20 7:[address] Patient Name: SANA PEACE Admission Status: ER Accout number: [id number] Admission Date: 01-22-2020 : 1995 Admission Diagnosis:POISONING BY OTH DRUG/MEDS/BIOL SUBST, SELF-HARM, INIT Attending: BRENT HESTER Current LOS: 3 Anticipated DC Date: Planned Disposition: Primary Insurance: [employer] PRIVATE OPTIONS [facility] Discharge Planning Comments: CM met with patient's sister Tatiana Reynoso to complete initial dc planning assessment. CM educated patient on the CM role and verbal consent given by patient to complete assessment. Patient lives at home with room-mate. Patient is independent. At discharge patient will most likely need inpatient psych placement since this admission was related to a suicide attempt. CM will continue to follow and will assist as needed with dc plans/needs. Produce Department Supervisor: Gina Anderson DCPIA - Discharge Planning Initial Assessment Updated by [email or web address]: Gina Anderson on 01/25/20 8:02 pm * Is the patient Alert and Oriented? Yes * How many steps to enter\\exit or inside your home? * PCP unknown - Chal Guru - therapist * Pharmacy [facility] * Preadmission Environment Home with Family * ADLs Independent * List name and contact numbers for known caregivers / representatives who currently or will assist patient after discharge: Tatiana Reynoso - sister - [phone] * Verbal permission to speak to the caregivers and representatives has been obtained from the patient. N/A * Community resources currently utilized None * Additional services required to return to the preadmission environment? No * Can the patient safely return to the preadmission environment? Yes * Has this patient been hospitalized within the prior 30 days at any hospital? No Last DP export: 02/02/20 9:35 pm Patient Name: SANA PEACE Page 40889 at 1145 All edits/amendments must be made on the electronic document DICTATION DATE: 02/03/20 1144 SUPPLY COORDINATOR: KODY 02/03/20 1144 RPT#: [id number] DC DATE: STATUS: ADM IN [facility] [address] [place] [address] END OF REPORT
--- NOTE | 2020-02-03 14:49 | NUR ---
OT NOTE: PT COMPLETED STANDING BALANCE ACTIVITIES WITH CGA. PT COMPLETED ADL MOB WITH CGA. PT COMPLETED BUE AROM AXS [phone] THANK YOU,MIL LANGFORD
[2020-02-03 15:00] VITALS: BP 122/73
--- NOTE | 2020-02-03 15:27 | NUR ---
PT GOT OUT OF CHAIR WANTING TO REST IN BED D/C RIGHT CENTRAL LINE PRESSURE DRESSING APPLIED NO CALVIN NOTED INSTRUCTED TO LAY IN BED FOR 20 MINUTES WITHOUT GETTING UP.
--- NOTE | 2020-02-03 15:49 | NUR ---
1345 CENTRAL LINE SITE CDI WITH NO HEMATOMA NOTED
--- NOTE | 2020-02-03 15:50 | NUR ---
1535 PATIENT TRYING TO PUL STTACHMENTS OFF THE REMY AND TRYING TO OPEN THE WINDOW BECOMING ANXIOUS AND INAPPROPRIATE TO STAFF WILLIAM LEONG GIVEN
--- NOTE | 2020-02-03 17:57 | NUR ---
1700 LAYING IN BED WITH EYES OPEN ALLOWED PT TO EXPRESS HER THOUGHTS WHILE LISTENING SHE STATED SHE WILL NOT TRY TO HIT OR KICK ANY STAFF AGAIN REFUSED DINNER
--- NOTE | 2020-02-03 18:07 | NUR ---
PATIENT REFUSED 1600 VITAL SIGNS
[2020-02-03 19:00] VITALS: BP 112/64
--- NOTE | 2020-02-03 19:00 | NUR ---
REPORT GIVEN BY ICU NURSE
--- NOTE | 2020-02-03 19:30 | NUR ---
WENT TO SEE PT. SHE IS SLEEPING NOW. DID NOT DISTURB HER.
--- NOTE | 2020-02-03 19:58 | MORECARE ---
CASE MANAGEMENT DISCHARGE SUMMARY PATIENT: SANA PEACE UNIT: [id number] ADM DATE: 01/22/20 AGE: 24 : [birth year] SEX: F ROOM/BED: D.2305 AUTHOR: TORRI,DOC PHYSICIAN: REFERRING PHYSICIAN: BRENT HESTER DO DATE OF SERVICE: 02/03/20 Discharge Plan Patient Name: SANA PEACE Facility: [facility]:[place] : 1995 Planned Disposition: Anticipated Discharge Date: Discharge Date: Expected LOS: Initial Reviewer: [email or web address] Initial Review Date: 01/22/2020 Generated: 02/03/20 8:57 pm Comments DCP- Discharge Planning Updated by [email or web address]: Ana Luisa Cortez on 02/03/20 6:[address] Late entry for ~ 15:32: ALEKSANDER received call from Santana at the Transfer Center. [facility] has received all info and is reviewing the record now for determination. ALEKSANDER notified Crystal in ICU on status of transfer to Inpatient Psych. DCP- Discharge Planning Updated by [id number]: Ana Luisa Cortez on 02/03/20 10:[address] 11:37 Recived call back form Santana stating he has spoken with [facility] about patient level of care. Located within [facility] has requested updated records. informed Santana that clinical update has been faxed and should be received soon. He will fax update to [facility]. DCP- Discharge Planning Updated by [id number]: Ana Luisa Cortez on 02/03/20 10:[address] 10:00 CM called Transfer Center to check on status of Inpatient Psych placement. ALEKSANDER spoke with Santana. Santana informed that agency has referred patient to: [facility], [facility], and [facility] and all three said they could not accept patient because they were "at capacity"; [facility] declined stating patient needed a Med Surg / Psych facility and they could not meet patient's needs; and [facility] states they will consider patient when she is no longer in ICU. ALEKSANDER asked Santana to follow up with [facility] to let them know that patient is only in ICU bed for 1:1 sitter. Patient is not getting ICU level of care. Santana states he will call [facility] about this. ALEKSANDER will continue to follow. CM faxed clinical update to [facility]. DCP- Discharge Planning Updated by [email or web address]: Ana Luisa Cortez on 02/02/20 9:[address] Patient Name: SANA PEACE Admission Status: ER Accout number: [id number] Admission Date: 01-22-2020 : 1995 Admission Diagnosis:POISONING BY OTH DRUG/MEDS/BIOL SUBST, SELF-HARM, INIT Attending: BRENT HESTER Current LOS: 11 Anticipated DC Date: 02/02/20 Planned Disposition: Inpatient Psych Facility Primary Insurance: [employer] OPTIONS [facility] Discharge Planning Comments: Late entry for 02/02/20 09:30: CM received call from ICU nurse stating MD stated patient is ready for discharge to Inpatient Psych facility. CM called [facility], spoke with Lina about referral. Reviewed medical record with Lina. Will send copy of record as requested. 10:25 CM received call back that facility would not be able to accept patient at this time due to the level of care needed with ADL's and IADL's. CM informed Lina that PT, OT, and ST would see patient again today and CM would let her know if functional level improves. 22:00 CM called transfer center with referral. Spoke with Estephania about referral. Faxed records as requested. CM notified ICU nurse, Germaine, of status of placement. Marketing And Communications Officer: Ana Luisa Cortez DCP- Discharge Planning Updated by [email or web address]: Gina Monica on 01/25/20 7:[address] Patient Name: SANA PEACE Admission Status: ER Accout number: [id number] Admission Date: 01-22-2020 : 1995 Admission Diagnosis:POISONING BY OTH DRUG/MEDS/BIOL SUBST, SELF-HARM, INIT Attending: BRENT HESTER Current LOS: 3 Anticipated DC Date: Planned Disposition: Primary Insurance: [employer] [facility] Discharge Planning Comments: CM met with patient's sister Tatiana Reynoso to complete initial dc planning assessment. CM educated patient on the CM role and verbal consent given by patient to complete assessment. Patient lives at home with room-mate. Patient is independent. At discharge patient will most likely need inpatient psych placement since this admission was related to a suicide attempt. CM will continue to follow and will assist as needed with dc plans/needs. Marketing And Communications Officer: Gina Anderson DCPIA - Discharge Planning Initial Assessment Updated by [email or web address]: Gina Anderson on 01/25/20 8:02 pm * Is the patient Alert and Oriented? Yes * How many steps to enter\\exit or inside your home? * PCP unknown - Patience Garvey - therapist * Pharmacy [facility] * Preadmission Environment Home with Family * ADLs Independent * List name and contact numbers for known caregivers / representatives who currently or will assist patient after discharge: Tatiana Reynoso - [facility] - [phone] * Verbal permission to speak to the caregivers and representatives has been obtained from the patient. N/A * Community resources currently utilized None * Additional services required to return to the preadmission environment? No * Can the patient safely return to the preadmission environment? Yes * Has this patient been hospitalized within the prior 30 days at any hospital? No Last DP export: 02/03/20 10:45 am Patient Name: SANA PEACE Page 77151 at 1958 All edits/amendments must be made on the electronic document DICTATION DATE: 02/03/201956 DOCK WORKER: KODY 02/03/201956 RPT#: [id number] CT DATE: STATUS: ADM IN [facility] [address] [place] [address] END OF REPORT
--- NOTE | 2020-02-03 20:00 | NUR ---
WENT BACK TO PT ROOM TO ASSES HER. SHE HAS HER EYES OPEN BUT SHE WILL NOT SPEAK. HEART SOUNDS WNL, LUNGS CLEAR, ABD SOFT AND NONTEMDER. SKIN IS WARM AND DRY. NO SKIN BREAKDOWN. PT HAS STAYED IN THE SAME POSITION ALL SHIFT. PT WAS SLEEPING AGAIN BEFORE I LEFT THE ROOM.
--- NOTE | 2020-02-03 22:00 | NUR ---
PT IS STILL SLEEPING. SHE HAS TURNED TO HER LEFT SIDE. WHEN I WENT INTO HER ROOM SHE OPENED HER EYES. I ASKED HER IF SHE WAS OK AND SHE SOFTLY SAID THAT SHE FELT EXHAUSTED. I ENCOURAGED HER TO JUST REST FOR NOW.
--- NOTE | 2020-02-04 | NUR ---
PT CONT TO SLEEP. RESP. EVEN AND UNLABORED. NO NEEDS OR C/O AT THIS TIME
--- NOTE | 2020-02-04 | NUR ---
PT SLEEPING. NO PROBLEMS TO REPORT
--- NOTE | 2020-02-04 02:00 | NUR ---
LORRAINE WENT INTO PT ROOM AND TOLD ME THAT SHE TOLD HER THAT SHE FELT EXHAUSTED. PT IS SLEEPING AGAIN AT THIS TIME.
[2020-02-04 03:00] VITALS: BP 110/72
--- NOTE | 2020-02-04 03:20 | NUR ---
WENT INTO PT ROOM. SHE IS STILL SLEEPING PEACEFULLY.
--- NOTE | 2020-02-04 04:00 | NUR ---
PT IS STILL SLEEPING.
--- NOTE | 2020-02-04 05:06 | NUR ---
PT IS SLEEPING SOUNDLY IS ON HER BACK AT THIS TIME. 4 SIDE RAIL UP.
--- NOTE | 2020-02-04 05:35 | NUR ---
PT IS TOO SEDATED TO ANSWER [place] FREQUENT RESCREENER. WILL CONTINUE TO MONITOR.
[2020-02-04 07:00] VITALS: BP 109/59
--- NOTE | 2020-02-04 08:20 | NUR ---
ASSESSMENT COMPLETED. OPENS EYES TO VERBAL STIMULI. ALERT BUT NOT ORIENTED TO PLACE, TIME AND SITUATION. NO IV ACCESS. INCONTINENT OF URINE. BED BATH AND LINEN CHANGE COMPLETED. DENIES ANY PAIN AT THIS TIME. WILL CONT TO MONITOR. SITTER AT BEDSIDE.
--- NOTE | 2020-02-04 10:04 | NUR ---
EYES CLOSED, RESP EVEN AND UNLABORED. WILL CONT TO MONITOR. SITTER AT BEDSIDE.
--- NOTE | 2020-02-04 10:46 | NUR ---
Nutrition follow-up: Receiving a regular mechanical soft with thin liquids diet PO intake poor to fair at this time 2/2 cognition Labs reviewed Will continue to provide food choices and honor food preferences. Will offer nutritional supplements. RDN following.
--- NOTE | 2020-02-04 10:55 | NUR ---
BEDSIDE REPORT RECEIVED.RESTING QUIETLY.NO SIGNS OF DISTRESS.CL IN EASY REACH,BED IN LOW POSITION,SIDE RAILS UP .
[2020-02-04 11:00] VITALS: BP 95/68
--- NOTE | 2020-02-04 13:43 | MORECARE ---
CASE MANAGEMENT DISCHARGE SUMMARY PATIENT: SANA PEACE UNIT: [id number] ADM DATE: 01/22/20 AGE: 24 : [birth year] SEX: F ROOM/BED: D.2305 AUTHOR: TORRI,DOC PHYSICIAN: REFERRING PHYSICIAN: BRENT HESTER DO DATE OF SERVICE: 02/04/20 Discharge Plan Patient Name: SANA PEACE Facility: [facility]:[place] : 1995 Planned Disposition: Anticipated Discharge Date: Discharge Date: Expected LOS: Initial Reviewer: [email or web address] Initial Review Date: 01/22/2020 Generated: 02/04/20 2:42 pm Comments DCP- Discharge Planning Updated by [id number]: Ana Luisa Cortez on 02/03/20 6:[address] Late entry for ~ 15:32: ALEKSANDER received call from Santana at the Transfer Center. [facility] has received all info and is reviewing the record now for determination. ALEKSANDER notified Crystal in ICU on status of transfer to Inpatient Psych. DCP- Discharge Planning Updated by [email or web address]: Ana Luisa Cortez on 02/03/20 10:[address] 11:37 Recived call back form Santana stating he has spoken with [facility] about patient level of care. [facility] has requested updated records. informed Santana that clinical update has been faxed and should be received soon. He will fax update to [facility]. DCP- Discharge Planning Updated by [id number]: Ana Luisa Cortez on 02/03/20 10:[address] 10:00 CM called Transfer Center to check on status of Inpatient Psych placement. ALEKSANDER spoke with Santana. Santana informed that agency has referred patient to: [facility], [facility], and [facility] and all three said they could not accept patient because they were "at capacity"; [facility] declined stating patient needed a Med Surg / Psych facility and they could not meet patient's needs; and [facility] states they will consider patient when she is no longer in ICU. ALEKSANDER asked Santana to follow up with [facility] to let them know that patient is only in ICU bed for 1:1 sitter. Patient is not getting ICU level of care. Santana states he will call [facility] about this. ALEKSANDER will continue to follow. CM faxed clinical update to Santana. DCP- Discharge Planning Updated by [email or web address]: Ana Luisa Cortez on 02/02/20 9:[address] Patient Name: SANA PEACE Admission Status: ER Accout number: [id number] Admission Date: 01-22-2020 : 1995 Admission Diagnosis:POISONING BY OTH DRUG/MEDS/BIOL SUBST, SELF-HARM, INIT Attending: BRENT HESTER Current LOS: 11 Anticipated DC Date: 02/02/20 Planned Disposition: Inpatient Psych Facility Primary Insurance: [employer] [facility] Discharge Planning Comments: Late entry for 02/02/20 09:30: CM received call from ICU nurse stating MD stated patient is ready for discharge to Inpatient Psych facility. CM called [facility], spoke with Lina about referral. Reviewed medical record with Lina. Will send copy of record as requested. 10:25 CM received call back that facility would not be able to accept patient at this time due to the level of care needed with ADL's and IADL's. CM informed Lina that PT, OT, and ST would see patient again today and CM would let her know if functional level improves. 22:00 CM called transfer center with referral. Spoke with Estephania about referral. Faxed records as requested. CM notified ICU nurse, Germaine, of status of placement. Mathematics Professor: Ana Luisa Cortez DCP- Discharge Planning Updated by [id number]: Gina Monica on 01/25/20 7:[address] Patient Name: SANA PEACE Admission Status: ER Accout number: [id number] Admission Date: 01-22-2020 : 1995 Admission Diagnosis:POISONING BY OTH DRUG/MEDS/BIOL SUBST, SELF-HARM, INIT Attending: BRENT HESTER Current LOS: 3 Anticipated DC Date: Planned Disposition: Primary Insurance: [employer] [facility] Discharge Planning Comments: CM met with patient's sister Tatiana Reynoso to complete initial dc planning assessment. CM educated patient on the CM role and verbal consent given by patient to complete assessment. Patient lives at home with room-mate. Patient is independent. At discharge patient will most likely need inpatient psych placement since this admission was related to a suicide attempt. CM will continue to follow and will assist as needed with dc plans/needs. Mathematics Professor: Gina Anderson DCPIA - Discharge Planning Initial Assessment Updated by [email or web address]: Gina Anderson on 01/25/20 8:02 pm * Is the patient Alert and Oriented? Yes * How many steps to enter\\exit or inside your home? * PCP unknown - Patience Garvey - therapist * Pharmacy [facility] * Preadmission Environment Home with Family * ADLs Independent * List name and contact numbers for known caregivers / representatives who currently or will assist patient after discharge: Tatiana Reynoso - [facility] - [phone] * Verbal permission to speak to the caregivers and representatives has been obtained from the patient. N/A * Community resources currently utilized None * Additional services required to return to the preadmission environment? No * Can the patient safely return to the preadmission environment? Yes * Has this patient been hospitalized within the prior 30 days at any hospital? No External Providers External Provider: [facility] (Inpt Adult Psych) Next Contact Date: Service Request Date: Service Type: Resolution: Reviewer: Comments: Last DP export: 02/03/20 6:58 pm Patient Name: SANA PEACE Page 11182 at 1343 All edits/amendments must be made on the electronic document DICTATION DATE: 02/04/20 1343 FINANCE ASSISTANT: KODY 02/04/20 1343 RPT#: [id number] DC DATE: STATUS: ADM IN [facility] [address] [place] [address] END OF REPORT
--- NOTE | 2020-02-04 15:01 | NUR ---
OT NOTE: PT COMPLETED UE FM/GM ACTIVITIES FOR INCREASED I WITH ADLS. PT COMPLETED SUPINE TO SIT WITH CGA. PT COMPLETED SIT TO STAND WITH CGA. PT COMPLETED SIDE STEPS WITH HEMATOLOGY NURSE EDUCATOR. [phone] THANK YOU,MIL LANGFORD
--- NOTE | 2020-02-04 16:00 | NUR ---
REPORT CALLED TO DEN MACKEY AT [facility].
--- NOTE | 2020-02-04 17:50 | NUR ---
TRANSFERED VIA AMBULANCE TO [facility].HAS ALL PERSONAL ITEMS.
--- NOTE | 2020-02-04 18:47 | MORECARE ---
CASE MANAGEMENT DISCHARGE SUMMARY PATIENT: SANA PEACE UNIT: [id number] ADM DATE: 01/22/20 AGE: 24 : [birth year] SEX: F ROOM/BED: D.2305 AUTHOR: TORRI,DOC PHYSICIAN: REFERRING PHYSICIAN: BRENT HESTER DO DATE OF SERVICE: 02/04/20 Discharge Plan Patient Name: SANA PEACE Facility: [facility]:[place] : 1995 Planned Disposition: Anticipated Discharge Date: Discharge Date: 02/04/2020 Expected LOS: Initial Reviewer: [id number] Initial Review Date: 01/22/2020 Generated: 02/04/20 7:47 pm Comments DCP- Discharge Planning Updated by [email or web address]: Gina Anderson on 02/04/20 5:[address] CM spoke with transfer center and Krysta at [facility] and sent updates. CM received callback from [facility] that patient has been accepted. CM notified [facility] of transfer and they will roller picker within the hour. All transfer forms completed by nursing and report called. DCP- Discharge Planning Updated by [id number]: Aan Luisa Cortez on 02/03/20 6:[address] Late entry for ~ 15:32: CM received call from Santana at the Transfer Center. [facility] has received all info and is reviewing the record now for determination. ALEKSANDER notified Crystal in ICU on status of transfer to Inpatient Psych. DCP- Discharge Planning Updated by [email or web address]: Ana Luisa Cortez on 02/03/20 10:[address] 11:37 Recived call back form Santana stating he has spoken with [facility] about patient level of care. [facility] has requested updated records. ALEKSANDER informed Santana that clinical update has been faxed and should be received soon. He will fax update to [facility]. DCP- Discharge Planning Updated by [id number]: Ana Luisa Cortez on 02/03/20 10:[address] 10:00 CM called Transfer Center to check on status of Inpatient Psych placement. ALEKSANDER spoke with Santana. Santana informed ALEKSANDER that agency has referred patient to: [facility], [facility], and [facility] and all three said they could not accept patient because they were "at capacity"; [facility] declined stating patient needed a Med Surg / Psych facility and they could not meet patient's needs; and [facility] states they will consider patient when she is no longer in ICU. CM asked Santana to follow up with [facility] to let them know that patient is only in ICU bed for 1:1 sitter. Patient is not getting ICU level of care. Santana states he will call [facility] about this. CM will continue to follow. CM faxed clinical update to Santana. DCP- Discharge Planning Updated by [id number]: Ana Luisa Cortez on 02/02/20 9:[address] Patient Name: SANA PEACE Admission Status: ER Accout number: [id number] Admission Date: 01-22-2020 : 1995 Admission Diagnosis:POISONING BY OTH DRUG/MEDS/BIOL SUBST, SELF-HARM, INIT Attending: BRENT HESTER Current LOS: 11 Anticipated DC Date: 02/02/20 Planned Disposition: Inpatient Psych Facility Primary Insurance: [employer] [place] [employer] Discharge Planning Comments: Late entry for 02/02/20 09:30: CM received call from ICU nurse stating MD stated patient is ready for discharge to Inpatient Psych facility. CM called [facility], spoke with Lina about referral. Reviewed medical record with Lina. Will send copy of record as requested. 10:25 CM received call back that facility would not be able to accept patient at this time due to the level of care needed with ADL's and IADL's. CM informed Lina that PT, OT, and ST would see patient again today and CM would let her know if functional level improves. 22:00 CM called transfer center with referral. Spoke with Estephania about referral. Faxed records as requested. CM notified ICU nurse, Germaine, of status of placement. Client Services Analyst: Ana Luisa Cortez DCP- Discharge Planning Updated by [id number]: Gina Anderson on 01/25/20 7:[address] Patient Name: SANA PEACE Admission Status: ER Accout number: [id number] Admission Date: 01-22-2020 : 1995 Admission Diagnosis:POISONING BY OTH DRUG/MEDS/BIOL SUBST, SELF-HARM, INIT Attending: BRENT HESTER Current LOS: 3 Anticipated DC Date: Planned Disposition: Primary Insurance: [place] [employer] Discharge Planning Comments: CM met with patient's sister Tatiana Reynoso to complete initial dc planning assessment. CM educated patient on the CM role and verbal consent given by patient to complete assessment. Patient lives at home with room-mate. Patient is independent. At discharge patient will most likely need inpatient psych placement since this admission was related to a suicide attempt. CM will continue to follow and will assist as needed with dc plans/needs. Client Services Analyst: Gina Anderson DCPIA - Discharge Planning Initial Assessment Updated by [id number]: Gina Anderson on 01/25/20 8:02 pm * Is the patient Alert and Oriented? Yes * How many steps to enter\\exit or inside your home? * PCP unknown - Patience Garvey - therapist * Pharmacy [facility] * Preadmission Environment Home with Family * ADLs Independent * List name and contact numbers for known caregivers / representatives who currently or will assist patient after discharge: Tatiana Reynoso - sister - [phone] * Verbal permission to speak to the caregivers and representatives has been obtained from the patient. N/A * Community resources currently utilized None * Additional services required to return to the preadmission environment? No * Can the patient safely return to the preadmission environment? Yes * Has this patient been hospitalized within the prior 30 days at any hospital? No Last DP export: 02/04/20 12:43 p Patient Name: SANA PEACE Page 48256 at 1847 All edits/amendments must be made on the electronic document DICTATION DATE: 02/04/201846 DIAGRAMMER: KODY 02/04/201846 RPT#: [id number] DC DATE:02/04/20 STATUS: DIS IN [facility] [address] [place] [address] END OF REPORT
--- NOTE | 2020-02-05 09:29 | MORECARE ---
CASE MANAGEMENT DISCHARGE SUMMARY PATIENT: SANA PEACE UNIT: [id number] ADM DATE: 01/22/20 AGE: 24 : [birth year] SEX: F ROOM/BED: D.2305 AUTHOR: TORRI,DOC PHYSICIAN: REFERRING PHYSICIAN: BRENT HESTER DO DATE OF SERVICE: 02/05/20 Discharge Plan Patient Name: SANA PEACE Facility: [facility]:[place] : 1995 Planned Disposition: Anticipated Discharge Date: Discharge Date: 02/04/2020 Expected LOS: Initial Reviewer: [email or web address] Initial Review Date: 01/22/2020 Generated: 02/05/20 10:28 am Comments DCP- Discharge Planning Updated by [email or web address]: Gina Anderson on 02/04/20 5:[address] CM spoke with transfer center and Krysta at [facility] and sent updates. CM received callback from [facility] that patient has been accepted. CM notified [facility] of transfer and they will product picker within the hour. All transfer forms completed by nursing and report called. DCP- Discharge Planning Updated by [email or web address]: Ana Luisa Cortez on 02/03/20 6:[address] Late entry for ~ 15:32: CM received call from Santana at the Transfer Center. [facility] has received all info and is reviewing the record now for determination. ALEKSANDER notified Crystal in ICU on status of transfer to Inpatient Psych. DCP- Discharge Planning Updated by [id number]: Ana Luisa Cortez on 02/03/20 10:[address] 11:37 Recived call back form Santana stating he has spoken with [facility] about patient level of care. [facility] has requested updated records. ALEKSANDER informed Santana that clinical update has been faxed and should be received soon. He will fax update to [facility]. DCP- Discharge Planning Updated by [email or web address]: Ana Luisa Cortez on 02/03/20 10:[address] 10:00 CM called Transfer Center to check on status of Inpatient Psych placement. ALEKSANDER spoke with Santana. Santana informed ALEKSANDER that agency has referred patient to: [facility], [facility], and [facility] and all three said they could not accept patient because they were "at capacity"; [facility] declined stating patient needed a Med Surg / Psych facility and they could not meet patient's needs; and [facility] states they will consider patient when she is no longer in ICU. CM asked Santana to follow up with [facility] to let them know that patient is only in ICU bed for 1:1 sitter. Patient is not getting ICU level of care. Santana states he will call [facility] about this. CM will continue to follow. CM faxed clinical update to Santana. DCP- Discharge Planning Updated by [id number]: Ana Luisa Cortez on 02/02/20 9:[address] Patient Name: SANA PEACE Admission Status: ER Accout number: [id number] Admission Date: 01-22-2020 : 1995 Admission Diagnosis:POISONING BY OTH DRUG/MEDS/BIOL SUBST, SELF-HARM, INIT Attending: BRENT HESTER Current LOS: 11 Anticipated DC Date: 02/02/20 Planned Disposition: Inpatient Psych Facility Primary Insurance: [employer] [place] [employer] [facility] Discharge Planning Comments: Late entry for 02/02/20 09:30: CM received call from ICU nurse stating MD stated patient is ready for discharge to Inpatient Psych facility. CM called [facility], spoke with Lina about referral. Reviewed medical record with Lina. Will send copy of record as requested. 10:25 CM received call back that facility would not be able to accept patient at this time due to the level of care needed with ADL's and IADL's. CM informed Lina that PT, OT, and ST would see patient again today and CM would let her know if functional level improves. 22:00 CM called transfer center with referral. Spoke with Estephania about referral. Faxed records as requested. CM notified ICU nurse, Germaine, of status of placement. Fuel Cell Systems Engineer: Ana Luisa Cortez DCP- Discharge Planning Updated by [email or web address]: Gina Anderson on 01/25/20 7:[address] Patient Name: SANA PEACE Admission Status: ER Accout number: [id number] Admission Date: 01-22-2020 : 1995 Admission Diagnosis:POISONING BY OTH DRUG/MEDS/BIOL SUBST, SELF-HARM, INIT Attending: BRENT HESTER Current LOS: 3 Anticipated DC Date: Planned Disposition: Primary Insurance: [place] [employer] [facility] Discharge Planning Comments: CM met with patient's sister Tatiana Reynoso to complete initial dc planning assessment. CM educated patient on the CM role and verbal consent given by patient to complete assessment. Patient lives at home with room-mate. Patient is independent. At discharge patient will most likely need inpatient psych placement since this admission was related to a suicide attempt. CM will continue to follow and will assist as needed with dc plans/needs. Fuel Cell Systems Engineer: Gina Anderson DCPIA - Discharge Planning Initial Assessment Updated by [email or web address]: Gina Anderson on 01/25/20 8:02 pm * Is the patient Alert and Oriented? Yes * How many steps to enter\\exit or inside your home? * PCP unknown - Patience Garvey - therapist * Pharmacy [facility] * Preadmission Environment Home with Family * ADLs Independent * List name and contact numbers for known caregivers / representatives who currently or will assist patient after discharge: Tatiana Reynoso - sister - [phone] * Verbal permission to speak to the caregivers and representatives has been obtained from the patient. N/A * Community resources currently utilized None * Additional services required to return to the preadmission environment? No * Can the patient safely return to the preadmission environment? Yes * Has this patient been hospitalized within the prior 30 days at any hospital? No Last DP export: 02/04/20 5:47 p Patient Name: SANA PEACE Page 79512 at 0929 All edits/amendments must be made on the electronic document DICTATION DATE: 02/05/20927 GLUER MACHINE SETUP OPERATOR: KODY 02/05/20927 RPT#: [id number] DC DATE:02/04/20 STATUS: DIS IN [facility] [address] [place] [address] END OF REPORT
--- NOTE | 2020-02-06 11:08 | MORECARE ---
CASE MANAGEMENT DISCHARGE SUMMARY PATIENT: SANA PEACE UNIT: [id number] ADM DATE: 01/22/20 AGE: 24 : [birth year] SEX: F ROOM/BED: D.2305 AUTHOR: TORRI,DOC PHYSICIAN: REFERRING PHYSICIAN: BRENT HESTER DO DATE OF SERVICE: 02/06/20 Discharge Plan Patient Name: SANA PEACE Facility: [facility]:[place] : 1995 Planned Disposition: Psych facility Anticipated Discharge Date: 02/04/20 Discharge Date: 02/04/2020 Expected LOS: 13 Initial Reviewer: [email or web address] Initial Review Date: 01/22/2020 Generated: 02/06/20 12:08 pm Comments DCP- Discharge Planning Updated by [email or web address]: Gina Anderson on 02/04/20 5:[address] CM spoke with transfer center and Krysta at [facility] and sent updates. CM received callback from [facility] that patient has been accepted. CM notified [facility] of transfer and they will sheet metal supervisor within the hour. All transfer forms completed by nursing and report called. DCP- Discharge Planning Updated by [email or web address]: Ana Luisa Cortez on 02/03/20 6:[address] Late entry for ~ 15:32: CM received call from Santana at the Transfer Center. [facility] has received all info and is reviewing the record now for determination. ALEKSANDER notified Crystal in ICU on status of transfer to Inpatient Psych. DCP- Discharge Planning Updated by [email or web address]: Ana Luisa Cortez on 02/03/20 10:[address] 11:37 Recived call back form Santana stating he has spoken with [facility] about patient level of care. [facility] has requested updated records. ALEKSANDER informed Santana that clinical update has been faxed and should be received soon. He will fax update to [facility]. DCP- Discharge Planning Updated by [email or web address]: Ana Luisa Cortez on 02/03/20 10:[address] 10:00 CM called Transfer Center to check on status of Inpatient Psych placement. ALEKSANDER spoke with Santana. Santana informed that agency has referred patient to: [facility], [facility], and [facility] and all three said they could not accept patient because they were "at capacity"; [facility] declined stating patient needed a Med Surg / Psych facility and they could not meet patient's needs; and [facility] states they will consider patient when she is no longer in ICU. CM asked Santana to follow up with [facility] to let them know that patient is only in ICU bed for 1:1 sitter. Patient is not getting ICU level of care. Santana states he will call [facility] about this. CM will continue to follow. CM faxed clinical update to Santana. DCP- Discharge Planning Updated by [email or web address]: Ana Luisa Cortez on 02/02/20 9:[address] Patient Name: SANA PEACE Admission Status: ER Accout number: [id number] Admission Date: 01-22-2020 : 1995 Admission Diagnosis:POISONING BY OTH DRUG/MEDS/BIOL SUBST, SELF-HARM, INIT Attending: BRENT HESTER Current LOS: 11 Anticipated DC Date: 02/02/20 Planned Disposition: Inpatient Psych Facility Primary Insurance: [place] [employer] Discharge Planning Comments: Late entry for 02/02/20 09:30: CM received call from ICU nurse stating MD stated patient is ready for discharge to Inpatient Psych facility. CM called [facility], spoke with Lina about referral. Reviewed medical record with Lina. Will send copy of record as requested. 10:25 CM received call back that facility would not be able to accept patient at this time due to the level of care needed with ADL's and IADL's. CM informed Lina that PT, OT, and ST would see patient again today and CM would let her know if functional level improves. 22:00 CM called transfer center with referral. Spoke with Estephania about referral. Faxed records as requested. CM notified ICU nurse, Germaine, of status of placement. [employer] Consultant: Ana Luisa Cortez DCP- Discharge Planning Updated by [email or web address]: Gina Anderson on 01/25/20 7:[address] Patient Name: SANA PEACE Admission Status: ER Accout number: [id number] Admission Date: 01-22-2020 : 1995 Admission Diagnosis:POISONING BY OTH DRUG/MEDS/BIOL SUBST, SELF-HARM, INIT Attending: BRENT HESTER Current LOS: 3 Anticipated DC Date: Planned Disposition: Primary Insurance: [place] [employer] [place] Discharge Planning Comments: CM met with patient's sister Tatiana Reynoso to complete initial dc planning assessment. CM educated patient on the CM role and verbal consent given by patient to complete assessment. Patient lives at home with room-mate. Patient is independent. At discharge patient will most likely need inpatient psych placement since this admission was related to a suicide attempt. CM will continue to follow and will assist as needed with dc plans/needs. [employer] Consultant: Gina Anderson DCPIA - Discharge Planning Initial Assessment Updated by [email or web address]: Gina Anderson on 01/25/20 8:02 pm * Is the patient Alert and Oriented? Yes * How many steps to enter\\exit or inside your home? * PCP unknown - Patience Garvey - therapist * Pharmacy [facility] * Preadmission Environment Home with Family * ADLs Independent * List name and contact numbers for known caregivers / representatives who currently or will assist patient after discharge: Tatiana Reynoso - sister - [phone] * Verbal permission to speak to the caregivers and representatives has been obtained from the patient. N/A * Community resources currently utilized None * Additional services required to return to the preadmission environment? No * Can the patient safely return to the preadmission environment? Yes * Has this patient been hospitalized within the prior 30 days at any hospital? No Last DP export: 02/05/20 8:29 a Patient Name: SANA PEACE Page [id number] at 1108 All edits/amendments must be made on the electronic document DICTATION DATE: 02/06/201107 COSMETICS DEMONSTRATOR: KODY 02/06/20 1108 RPT#: [id number] DC DATE:02/04/20 STATUS: DIS IN [facility] [address] [place] [address] END OF REPORT
== END 2020-02-04 17:50 | disposition short-term general hospital (02) | DRG 917 ==
LOC: D.ER 04:14 → D.ICU 06:33
PROVIDERS: Family Medicine; Internal Medicine Cardiovascular Disease; Internal Medicine Pulmonary Disease; ADMIT Family Medicine; ATTEND Family Medicine
PROC: 5A1223Z Performance of Cardiac Pacing, Continuous (ICD-10-PCS; 2020-01-22)
PROC: 5A1955Z Respiratory Ventilation, Greater than 96 Consecutive Hours (ICD-10-PCS; 2020-01-22)
PROC: 05H633Z Insertion of Infusion Device into Left Subclavian Vein, Percutaneous Approach (ICD-10-PCS; principal; 2020-01-22 06:20)
DX: T50.992A Poisoning by other drugs, medicaments and biological substances, intentional self-harm, initial encounter (principal); J96.00 Acute respiratory failure, unspecified whether with hypoxia or hypercapnia; R40.2122 Coma scale, eyes open, to pain, at arrival to emergency department; R40.2212 Coma scale, best verbal response, none, at arrival to emergency department; G93.41 Metabolic encephalopathy; E87.2 Acidosis; J98.11 Atelectasis; R56.9 Unspecified convulsions; R40.2352 Coma scale, best motor response, localizes pain, at arrival to emergency department; R00.1 Bradycardia, unspecified; E83.42 Hypomagnesemia; R00.0 Tachycardia, unspecified; F20.9 Schizophrenia, unspecified; F32.9 Major depressive disorder, single episode, unspecified; E87.6 Hypokalemia